=== PATIENT | male | born 1985 | race Caucasian/White ===

== ENCOUNTER 2020-02-15 23:42 | Inpatient (IN) | payer MEDICAID, OTHER ==
[~2020-02-15] VITALS: Ht 175.3 cm; Wt 86.2 kg
--- NOTE | 2020-02-16 00:03 | NUR ---
PT BIB [facility], SHORT OF BREATH AND PLACED ON CR MONITOR, AND IV SITES X2 FLUSHED AND FLUSH WELL. PT ON O2 NC 2LPM, DIFFICULTY BREATHING, SITTING UP IN BED, AND MD CALLED TO ROOM.
--- NOTE | 2020-02-16 00:04 | NUR ---
PT TACHYCARDIC, TO EVAL.
--- NOTE | 2020-02-16 00:10 | NUR ---
Pt has second IV to right forearm. 20g. flushed easy with ns 5 ml.
[2020-02-16] MEDS ORDERED: ACETAMINOPHEN 325 MG TABLET ONE ×2 (00:29→18:18)
[2020-02-16] MEDS ORDERED: VANCOMYCIN PER PHARMACY MC PRN ×2 (00:30→02:00)
[2020-02-16] MEDS ORDERED: ACETAMINOPHEN 500 MG TABLET PO ONE (00:30)
[2020-02-16] MEDS ORDERED: PLEASE ENTER ALLERGIES MC SCH (00:30)
--- NOTE | 2020-02-16 00:40 | NUR ---
pt to ct on cr monitor with tech
--- NOTE | 2020-02-16 00:58 | NUR ---
pt back from ct, remains on cr monitor.
[2020-02-16] MEDS ORDERED: VANCOMYCIN 2,000 MG in SODIUM CHLORIDE 0.9% 500 ML IV ONE (01:00)
[2020-02-16] MEDS ORDERED: PHARMACOKINETIC CONSULTATION MC ONE (01:30)
[2020-02-16] MEDS ORDERED: DOCUSATE 100 MG CAPSULE PO PRN (02:00)
[2020-02-16] MEDS ORDERED: ONDANSETRON ODT 4 MG PO PRN (02:00)
[2020-02-16] MEDS ORDERED: PROMETHAZINE 25 MG/ML, 1ML IM PRN (02:00)
[2020-02-16] MEDS ORDERED: POLYETHYLENE GLYCOL 17 GM PACKET PO PRN (02:00)
[2020-02-16] MEDS ORDERED: hydrALAzine 20 MG/ML, 1ML IVPush PRN (02:00)
[2020-02-16] MEDS ORDERED: ENOXAPARIN 40 MG/0.4 ML SQ SCH (02:00)
[2020-02-16] MEDS ORDERED: BISACODYL 10 MG SUPP PR PRN (02:00)
--- NOTE | 2020-02-16 02:28 | NUR ---
BREAK RN ---PT RESTING IN BED ON MONITOR, PT VSS.
[2020-02-16] MEDS ORDERED: PHARMACOKINETIC MONITORING MC PRN (02:30)
[2020-02-16] MEDS: ERTAPENEM 1 GM in SODIUM CHLORIDE 0.9% 50 ML IV SCH ×2 (02:30→05:53)
--- NOTE | 2020-02-16 02:51 | NUR ---
pt calm and resting easy, on cr monitor. taking ice chips. iv intact, meds infusing. no swelling or redness.
[2020-02-16] MEDS ORDERED: OMNIPAQUE 350 MG/ML, 75ML BOTTLE ONE (03:14)
--- NOTE | 2020-02-16 03:19 | NUR ---
ice chips given to pt. pt seems more alert and calm. temperature subsiding. now 98.7F resting in bed on cr monitor.
[2020-02-16] MEDS: SODIUM CHLORIDE 0.9% 1,000 ML IV SCH ×2 (03:50→10:00)
[2020-02-16] MEDS ORDERED: MORPHINE SULFATE 4 MG/ML, 1ML ONE ×3 (03:57→13:58)
[2020-02-16] MEDS: morphine SULFATE 10 MG/ML, 1ML IVPush PRN ×3 (04:05→14:06)
--- NOTE | 2020-02-16 04:11 | NUR ---
pt c/o pain to back radiating to abd and chest on movement, and pain meds given, and charted on pain scale. pt onto bedpan, large liquid stool, brown and liquid. linen changed, and pt cleaned up. no skin breakdown or redness noted to buttocks. pt now comfortable, remains on cr monitor. and ivfm started at 125ml/hr NS per emar. ice chips to pt. a&ox4.
--- NOTE | 2020-02-16 04:50 | NUR ---
pt comfortable, lying on side, and resting. easy respirations and oxygenation. remains on cr monitor.
[2020-02-16 05:16] LABS: HCT (SEDRATE) 37.4 % (39.2-51.8)
[2020-02-16 05:17] LABS: MEAN CORPUSCULAR HEMOGLOBIN 28.5 pg (27.5-34.5); MEAN CORPUSCULAR HGB CONC 33.6 g/dL (33.2-36.2); MEAN PLATELET VOLUME 10.7 fL (7.4-10.4); RED BLOOD COUNT 4.45 x10^6/uL (4.38-5.82); RED CELL DISTRIBUTION WIDTH 14.9 % (9.4-14.8)
--- NOTE | 2020-02-16 05:31 | NUR ---
pt resting comfortably on side. no distress noted at this time. remains on cr monitor.
[2020-02-16 05:34] LABS: TROPONIN I < 0.015 ng/mL (0.000-0.045)
[2020-02-16 05:35] LABS: CHLORIDE 106 mmol/L (98-107)
[2020-02-16 05:45] LABS: ALANINE AMINOTRANSFERASE 52 U/L (12-78); ALBUMIN 1.3 g/dL (3.4-5.0); ALKALINE PHOSPHATASE 273 U/L (45-117); ANION GAP 14 mmol/L (5-15); BILIRUBIN,TOTAL 2.7 mg/dL (0.2-1.0); CALCIUM 7.1 mg/dL (8.5-10.1); CREATININE 1.94 mg/dL (0.7-1.3); TOTAL PROTEIN 5.6 g/dL (6.4-8.2); TROPONIN I < 0.015 ng/mL (0.000-0.045)
[2020-02-16 05:51] LABS: C-REACTIVE PROTEIN, QUANT > 19.00 mg/dL (0.02-0.49)
[2020-02-16] MEDS: ONDANSETRON 2MG/ML, 2ML IVPush PRN ×3 (05:54→22:42)
--- NOTE | 2020-02-16 05:54 | NUR ---
pt c/o nausea, zofran given per emar/MD order. meds infusing. iv site soft and flat, no redness or infiltration noted.
[2020-02-16] MEDS ORDERED: ONDANSETRON 2MG/ML, 2ML ONE ×2 (05:55→09:21)
[2020-02-16 05:57] LABS: MD YES; PLATELET COUNT 13 x10^3/uL (130-400)
[2020-02-16 05:59] LABS: BAND#(MANUAL) 1.28 x10^3/uL; BANDS%(MANUAL) 4 % (0-7); LYMPH#(MANUAL) 0.32 x10^3/uL (1-3.4); LYMPHS% (MANUAL) 1 % (22-44); METAMYELOCYTES# (MANUAL) 0.32 x10^3/uL (0-0); METAMYELOCYTES% (MANUAL) 1 % (0-1); MONOS#(MANUAL) 2.24 x10^3/uL (0.3-2.7); MONOS% (MANUAL) 7 % (2-9); SEG#(MANUAL) 27.84 x10^3/uL (1.8-6.8); SEGS% (MANUAL) 87 % (42-75)
[2020-02-16 06:00] LABS: <PLATELET ESTIMATE> DECREASED; <PLT MORPHOLOGY> NORMAL PLT MORPH; ANISOCYTOSIS 1+; PMNS WITH VACUOLES 1+; TOXIC GRAN 1+
[2020-02-16] MEDS ORDERED: POTASSIUM CHLORIDE 20 MEQ TAB.ER.PRT PO ONE (07:00)
--- NOTE | 2020-02-16 07:04 | NUR ---
REPORT AND CARE TO DAYSHIFT RN without incident. pt resting comfortably. on cr monitor.
--- NOTE | 2020-02-16 07:10 | NUR ---
[facility] of pt. report diana Calvert RN. pt transfer here for evaluation of SOB and sepsis. pt has hx of IV drug abuse and SOB with CP. per report, pt was swabbed for COVID at previous facility and was negative. pt is currentely resting on gurney in position of comfort. no family at bedside pt to be admtted to CCU. pt is currently a hold. admit orders have been recived, awaiting bed assignment
[2020-02-16 08:16] LABS: PLATELET (DIC) 14 x10^3/uL (130-400)
[2020-02-16 08:17] LABS: D-DIMER (DIC) > 35.20 ug/mlFEU (0.00-0.52)
[2020-02-16 08:18] LABS: FIBRINOGEN 489 mg/dL (200-340); PTT 33 Seconds (25-31)
--- NOTE | 2020-02-16 08:30 | NUR ---
pt moved to hospital bed for comfort. positioning for comfort. \ hospitalist has been to bedside for eval pt has been taking PO wate and ice chips pt updated on POC
[2020-02-16] MEDS: PIPERACILLIN/TAZO/PMX 2.25GM 50 ML IVPB SCH ×2 (08:52→13:20)
[2020-02-16] MEDS ORDERED: ACETAMINOPHEN 500 MG TABLET ONE (09:22)
--- NOTE | 2020-02-16 09:45 | NUR ---
pt has been medicated for pain. resting in position of comfort watching TV
--- NOTE | 2020-02-16 10:15 | NUR ---
pt reports that he has had some relief of pain after meds. pt reports that his pain was 8-10 out of 10 beforemeds and that now he is down to a 6/10. pt has been taking PO fluids and ice chips without difficulty. no apaprent distress
--- NOTE | 2020-02-16 11:54 | NUR ---
spoke to pt SO Beryl [phone], given upate on pt status per pt OK verified pt mother phone number as [phone]. have attempted to call 3x, but have been unable to reach her pt ate about 50% of his meal. requesting more soda and PO ice chips
[2020-02-16 12:28] LABS: CREATININE 1.74 mg/dL (0.7-1.3)
--- NOTE | 2020-02-16 12:33 | NUR ---
pt has been dozing intermittently. resting in position of comfort
--- NOTE | 2020-02-16 13:15 | NUR ---
sequentials in place. pt has been given incentive spirometer with instructions for use and has provided return demonstrations. pt positioning for comfort pt updated on POC. pt has been taking PO fluids without diffiulty. no new c/o awaiting bed assignment
--- NOTE | 2020-02-16 14:03 | NUR ---
Echo at bedside
--- NOTE | 2020-02-16 14:06 | NUR ---
message left for Dr. Figueroa to discuss pt VS and urine output
[2020-02-16 14:46] LABS: MICROSCOPIC INDICATED
--- NOTE | 2020-02-16 14:57 | NUR ---
spoke to Dr. Islas regarding pt Echo completion and urine output. pt to have new COVID swab and LR infusion
[2020-02-16 15:19] LABS: BASOPHILS % (AUTO) 0 % (0-1); EOSINOPHILS % (AUTO) 2 % (1-7); LYMPHOCYTES % (AUTO) 4 % (22-44); MEAN CORPUSCULAR HEMOGLOBIN 28.5 pg (27.5-34.5); MEAN CORPUSCULAR HGB CONC 33.5 g/dL (33.2-36.2); MEAN PLATELET VOLUME 10.1 fL (7.4-10.4); MONOCYTES % (AUTO) 10 % (2-9); NEUTROPHILS % (AUTO) 83 % (42-75); RED BLOOD COUNT 4.02 x10^6/uL (4.38-5.82); RED CELL DISTRIBUTION WIDTH 15.4 % (9.4-14.8)
[2020-02-16] MEDS: VANCOMYCIN 2,000 MG in SODIUM CHLORIDE 0.9% 500 ML IV SCH (15:40)
--- NOTE | 2020-02-16 15:42 | NUR ---
TASK RN NOTE PT MEDICATED PER EMAR. PT REMINDED TO KEEP NC IN NOSE FOR O2 ADMINISTRATION. PT RECLINED IN BED WATCHING TELEVISION. PRIMARY RN AWARE OF VS.
[2020-02-16 15:54] LABS: PLATELET COUNT 11 x10^3/uL (130-400)
[2020-02-16] MEDS: INSULIN LISPRO 100 UNITS/ML, PEN SQ-INSULIN SCH ×2 (16:00→21:00)
[2020-02-16 16:10] LABS: MD SCAN
--- NOTE | 2020-02-16 16:30 | NUR ---
lab at bedside to draw
--- NOTE | 2020-02-16 16:44 | NUR ---
pt watching TV with ABX infusing lab has contacted this RN to discuss possible irradiated plateklet infusion, but is going to F/U with ordering MD first report to Cynthia REZA for lunch
--- NOTE | 2020-02-16 16:52 | NUR ---
BREAK RN: REBA RPT REC'D ASSUMED PT CARE. PT VSS, C/O PAIN; 10/24. eMAR REVIEWED, ORDERS FOR OXYCODONE DISCUSSED WITH PT. COVID SWAB OBTAINED AND DELIVERED TO LAB. CALL LIGHT W/I REACH.
[2020-02-16] MEDS ORDERED: OXYcodone IR 5MG TABLET ONE (16:55)
[2020-02-16] MEDS: OXYcodone IR 5MG TABLET PO PRN ×2 (17:02→22:42)
--- NOTE | 2020-02-16 17:04 | NUR ---
BREAK RN: PT MED NOTED FOR PAIN
--- NOTE | 2020-02-16 17:07 | NUR ---
BREAK RN: SPOKE WITH ANDRAE IN BLOOD BANK. SHE STATED THAT SHE SPOKE WITH DR MISHRA AND PT IS CLEARED TO RECIEVE NON-IRRADIATED PLTS PT DOES NOT HAVE A CURRENT CANCER DIAGNOSIS. PER ANDRAE PLATELETS ARE READY AND CAN BE DELIVERED ONCE PURPLE SLIP IS RECIEVED BY BLOOD BANK
[2020-02-16] MEDS: LACTATED RINGERS 1,000 ML IV SCH ×2 (17:16→22:41)
[2020-02-16] MEDS ORDERED: PIPERACILLIN/TAZO/PMX 3.375GM 50 ML IV SCH (18:00)
--- NOTE | 2020-02-16 18:00 | NUR ---
pt resting. pt is diaphoretic, but dozing intermittently. pt has been intermittently diaphoretic all throughout the day. pt is currently sleeping, but easily arousable. blood product consent has been obtained by Cynthia REZA
[2020-02-16] MEDS: ACETAMINOPHEN 325 MG TABLET PO PRN (18:21)
[2020-02-16] MEDS: PIPERACILLIN/TAZO/PMX 4.5GM 100 ML IV SCH ×2 (18:22→23:56)
--- NOTE | 2020-02-16 18:31 | NUR ---
puprple slip for platelet request has been sent to blood bank
[2020-02-16 18:43] VITALS: BP 123/58
--- NOTE | 2020-02-16 18:45 | NUR ---
platelet transfusion initiated. checked with Cynthia RN and pt at bedside
[2020-02-16 18:58] VITALS: BP 105/50
--- NOTE | 2020-02-16 18:58 | NUR ---
first VS check into transfusion, pt has slight elevation in temp and change in B/P, infusion held at this time. pt has no increased resp. distress. pt has no change in HR. no flushing, no rash, no ral swelling. blood bank contacted
--- NOTE | 2020-02-16 18:58 | NUR ---
REPORT OF PT FROM LIBIA DIOP AND ASSUMING CARE OF PT AT THIS TIME.
--- NOTE | 2020-02-16 19:20 | NUR ---
per Blood Bank, transfusion not to be continued. pt liriano needs to be drained, flush IV line and next urine needs to be sent for eval. pt updated on POC
--- NOTE | 2020-02-16 19:38 | NUR ---
PT BROUGHT WATER PER PT REQUEST. LIBIA DIOP ATTEMPTED TO CALL REPORT TO CCU, BUT RN UNAVAILABLE AT THIS TIME. LAB AT FOR BLOOD DRAW.
--- NOTE | 2020-02-16 19:45 | NUR ---
have discussed pt condition with Dr. Munoz. per Dr. Munoz, no change in current course of tx. orders recieved for MRI and cooling blanket. no change in pain management at this time
--- NOTE | 2020-02-16 19:52 | NUR ---
bed assignment has been recieved, attempting to call report
--- NOTE | 2020-02-16 19:53 | NUR ---
recieving RN not ready to take report at this time
--- NOTE | 2020-02-16 20:01 | NUR ---
report to Familia REZA
--- NOTE | 2020-02-16 20:23 | NUR ---
CCU CALLED TO TUBE COOLING BLANKET AT THIS TIME. PT FEBRILE. HOSPITALIST AWARE WITH ORDERS IN PLACE.
[2020-02-16 21:59] VITALS: BP 116/68
--- NOTE | 2020-02-16 22:05 | NUR ---
REPORT OF PT TO LIBIA ZARATE. ALL QUESTIONS ANSWERED. SOY PAGED TO FRONT FOR ASSISTANCE OF TRANSPORT OF PT FROM ED TO CCU. PT LEAVING FLOOR AT THIS TIME WITH THIS RN AND ASHLEY OLIVIER. PT EDUCATED ON ROOM ASSIGNMENT AND VERBALIZES UNDERSTANDING. PT DENIES ANY NEEDS PRIOR TO TRANSPORT TO FLOOR.
[2020-02-16 22:31] LABS: MICROSCOPIC INDICATED
[2020-02-17 02:43] VITALS: BP 116/68
[2020-02-17 05:33] LABS: CHLORIDE 105 mmol/L (98-107)
[2020-02-17 05:43] LABS: ANION GAP 8 mmol/L (5-15); CALCIUM 7.2 mg/dL (8.5-10.1); CREATININE 1.34 mg/dL (0.7-1.3)
[2020-02-17] MEDS: PIPERACILLIN/TAZO/PMX 4.5GM 100 ML IV SCH ×2 (06:10→12:40)
[2020-02-17] MEDS: OXYcodone IR 5MG TABLET PO PRN ×5 (06:16→22:25)
[2020-02-17 06:49] LABS: BASOPHILS % (AUTO) 0 % (0-1); EOSINOPHILS % (AUTO) 0 % (1-7); LYMPHOCYTES % (AUTO) 46 % (22-44); MEAN CORPUSCULAR HEMOGLOBIN 28.4 pg (27.5-34.5); MEAN CORPUSCULAR HGB CONC 33.2 g/dL (33.2-36.2); MEAN PLATELET VOLUME 10.6 fL (7.4-10.4); MONOCYTES % (AUTO) 2 % (2-9); NEUTROPHILS % (AUTO) 51 % (42-75); RED BLOOD COUNT 3.79 x10^6/uL (4.38-5.82); RED CELL DISTRIBUTION WIDTH 15.4 % (9.4-14.8)
[2020-02-17] MEDS: VANCOMYCIN 2,000 MG in SODIUM CHLORIDE 0.9% 500 ML IV SCH (07:29)
[2020-02-17] MEDS: INSULIN LISPRO 100 UNITS/ML, PEN SQ-INSULIN SCH ×4 (07:32→21:00)
[2020-02-17 08:32] LABS: MD SCAN; PLATELET COUNT 24 x10^3/uL (130-400)
[2020-02-17] MEDS: LACTATED RINGERS 1,000 ML IV SCH (09:36)
[2020-02-17] MEDS ORDERED: POTASSIUM CHLORIDE 20 MEQ TAB.ER.PRT PO ONE (11:30)
[2020-02-17] MEDS: ACETAMINOPHEN 325 MG TABLET PO PRN ×3 (12:02→22:25)
[2020-02-17] MEDS: CEFTAROLINE 600 MG in SODIUM CHLORIDE 0.9% 100 ML IV SCH ×2 (13:49→21:17)
[2020-02-17] MEDS ORDERED: VANCOMYCIN 2,000 MG in SODIUM CHLORIDE 0.9% 500 ML IV SCH (18:00)
[2020-02-18] MEDS: ACETAMINOPHEN 325 MG TABLET PO PRN ×5 (02:42→21:55)
[2020-02-18] MEDS: OXYcodone IR 5MG TABLET PO PRN ×4 (02:43→15:40)
[2020-02-18] MEDS: CEFTAROLINE 600 MG in SODIUM CHLORIDE 0.9% 100 ML IV SCH ×3 (05:29→21:55)
[2020-02-18 05:37] LABS: CALCIUM 7.2 mg/dL (8.5-10.1); CHLORIDE 105 mmol/L (98-107); MEAN CORPUSCULAR HEMOGLOBIN 28.3 pg (27.5-34.5); MEAN CORPUSCULAR HGB CONC 33.6 g/dL (33.2-36.2); RED CELL DISTRIBUTION WIDTH 15.3 % (9.4-14.8)
[2020-02-18 05:41] LABS: ANION GAP 7 mmol/L (5-15); CREATININE 0.82 mg/dL (0.7-1.3)
[2020-02-18 06:56] LABS: PLATELET COUNT 21 x10^3/uL (130-400)
[2020-02-18] MEDS ORDERED: POTASSIUM CHLORIDE 20 MEQ TAB.ER.PRT PO ONE (07:00)
[2020-02-18 07:08] LABS: MD YES
[2020-02-18 07:09] LABS: LYMPH#(MANUAL) 0.31 x10^3/uL (1-3.4); LYMPHS% (MANUAL) 1 % (22-44); MONOS#(MANUAL) 0.93 x10^3/uL (0.3-2.7); MONOS% (MANUAL) 3 % (2-9); SEG#(MANUAL) 29.76 x10^3/uL (1.8-6.8); SEGS% (MANUAL) 96 % (42-75)
[2020-02-18 07:13] LABS: ANISOCYTOSIS 1+
[2020-02-18 07:14] LABS: <PLATELET ESTIMATE> DECREASED; <PLT MORPHOLOGY> NORMAL PLT MORPH; PMNS WITH VACUOLES 1+; TOXIC GRAN 1+
[2020-02-18] MEDS ORDERED: MORPHINE SULFATE 4 MG/ML, 1ML ONE (08:00)
[2020-02-18] MEDS: morphine SULFATE 10 MG/ML, 1ML IVPush PRN ×2 (08:08→10:40)
[2020-02-18] MEDS: INSULIN LISPRO 100 UNITS/ML, PEN SQ-INSULIN SCH ×4 (08:10→21:53)
[2020-02-18 08:28] LABS: D-DIMER (DIC) 33.12 ug/mlFEU (0.00-0.52); PROTIME 11.8 Seconds (9.6-11.5)
[2020-02-18] MEDS: RIFAMPIN 300 MG CAPSULE PO SCH (09:41)
[2020-02-18 10:08] LABS: AMPHETAMINE SCREEN, URINE Negative (Negative); BARBITURATE SCREEN, URINE Negative (Negative); BENZODIAZEPINE SCREEN, URINE Negative (Negative); CANNABINOID SCREEN, URINE Negative (Negative); COCAINE SCREEN, URINE Negative (Negative); METHADONE SCREEN, URINE Negative (Negative); OPIATE SCREEN, URINE Positive (Negative)
[2020-02-18] MEDS: DAPTOMYCIN 800 MG in SODIUM CHLORIDE 0.9% 100 ML IVPB SCH (12:40)
[2020-02-18] MEDS: MIDODRINE 5 MG TABLET PO SCH ×2 (15:30→21:55)
[2020-02-19] MEDS: ACETAMINOPHEN 325 MG TABLET PO PRN ×4 (01:50→22:03)
[2020-02-19 05:15] LABS: MEAN CORPUSCULAR HEMOGLOBIN 28.8 pg (27.5-34.5); MEAN PLATELET VOLUME 11.3 fL (7.4-10.4); RED BLOOD COUNT 3.36 x10^6/uL (4.38-5.82); RED CELL DISTRIBUTION WIDTH 15.4 % (9.4-14.8)
[2020-02-19] MEDS: CEFTAROLINE 600 MG in SODIUM CHLORIDE 0.9% 100 ML IV SCH ×3 (05:24→22:02)
[2020-02-19 05:36] LABS: PLATELET COUNT 27 x10^3/uL (130-400)
[2020-02-19 06:29] LABS: MD YES
[2020-02-19 06:46] LABS: BAND#(MANUAL) 1.14 x10^3/uL; BANDS%(MANUAL) 4 % (0-7); EOS#(MANUAL) 0.29 x10^3/uL (0.0-0.4); EOS% (MANUAL) 1 % (1-7); LYMPH#(MANUAL) 3.42 x10^3/uL (1-3.4); LYMPHS% (MANUAL) 12 % (22-44); MONOS#(MANUAL) 0.86 x10^3/uL (0.3-2.7); MONOS% (MANUAL) 3 % (2-9); SEGS% (MANUAL) 80 % (42-75)
[2020-02-19 06:47] LABS: ANISOCYTOSIS 1+; SMUDGE CELLS 1+; TOXIC GRAN 1+
[2020-02-19 06:48] LABS: <PLATELET ESTIMATE> DECREASED; LARGE PLATELETS 1+
[2020-02-19 07:49] LABS: D-DIMER (DIC) 23.53 ug/mlFEU (0.00-0.52); PROTIME 11.3 Seconds (9.6-11.5)
[2020-02-19] MEDS: INSULIN LISPRO 100 UNITS/ML, PEN SQ-INSULIN SCH ×2 (08:08→11:31)
[2020-02-19] MEDS: MIDODRINE 5 MG TABLET PO SCH ×3 (08:19→20:17)
[2020-02-19] MEDS: RIFAMPIN 300 MG CAPSULE PO SCH (08:19)
[2020-02-19] MEDS: OXYcodone IR 5MG TABLET PO PRN ×4 (08:23→20:19)
[2020-02-19] MEDS ORDERED: GENTAMICIN PER PHARMACY MC PRN (09:30)
[2020-02-19] MEDS: DAPTOMYCIN 800 MG in SODIUM CHLORIDE 0.9% 100 ML IVPB SCH (09:32)
[2020-02-19] MEDS ORDERED: PHARMACOKINETIC MONITORING MC PRN (11:00)
[2020-02-19] MEDS: GENTAMICIN 300 MG in SODIUM CHLORIDE 0.9% 100 ML IV SCH (11:32)
[2020-02-20] MEDS: ACETAMINOPHEN 325 MG TABLET PO PRN ×4 (04:34→20:04)
[2020-02-20] MEDS: CEFTAROLINE 600 MG in SODIUM CHLORIDE 0.9% 100 ML IV SCH ×3 (05:20→21:33)
[2020-02-20 05:34] LABS: ANION GAP 7 mmol/L (5-15); CALCIUM 7.3 mg/dL (8.5-10.1); CHLORIDE 108 mmol/L (98-107); CREATININE 1.08 mg/dL (0.7-1.3)
[2020-02-20 05:35] LABS: MEAN CORPUSCULAR HEMOGLOBIN 28.1 pg (27.5-34.5); MEAN CORPUSCULAR HGB CONC 33.4 g/dL (33.2-36.2); MEAN PLATELET VOLUME 10.3 fL (7.4-10.4); RED BLOOD COUNT 3.44 x10^6/uL (4.38-5.82); RED CELL DISTRIBUTION WIDTH 15.1 % (9.4-14.8)
[2020-02-20 06:39] LABS: MD YES
[2020-02-20 06:40] LABS: PLATELET COUNT 38 x10^3/uL (130-400)
[2020-02-20 06:44] LABS: LYMPH#(MANUAL) 2.64 x10^3/uL (1-3.4); LYMPHS% (MANUAL) 8 % (22-44)
[2020-02-20 06:46] LABS: BAND#(MANUAL) 0.99 x10^3/uL; BANDS%(MANUAL) 3 % (0-7); EOS#(MANUAL) 0.33 x10^3/uL (0.0-0.4); EOS% (MANUAL) 1 % (1-7); MONOS#(MANUAL) 1.98 x10^3/uL (0.3-2.7); MONOS% (MANUAL) 6 % (2-9); REACTIVE LYMPHS # (MANUAL) 0.33 x10^3/uL (0-0); REACTIVE LYMPHS % (MANUAL) 1 % (0-0); SEG#(MANUAL) 26.73 x10^3/uL (1.8-6.8); SEGS% (MANUAL) 81 % (42-75); SMUDGE CELLS 1+; TOXIC GRAN 1+
[2020-02-20 06:47] LABS: ANISOCYTOSIS 1+; POLYCHROMASIA 1+; TARGET CELLS 1+
[2020-02-20 06:48] LABS: <PLATELET ESTIMATE> DECREASED; LARGE PLATELETS 1+
[2020-02-20] MEDS: OXYcodone IR 5MG TABLET PO PRN (08:49)
[2020-02-20] MEDS: RIFAMPIN 300 MG CAPSULE PO SCH (08:49)
[2020-02-20] MEDS: MIDODRINE 5 MG TABLET PO SCH ×3 (08:49→20:05)
[2020-02-20] MEDS: DAPTOMYCIN 800 MG in SODIUM CHLORIDE 0.9% 100 ML IVPB SCH (08:50)
[2020-02-20] MEDS: GENTAMICIN 300 MG in SODIUM CHLORIDE 0.9% 100 ML IV SCH (11:58)
[2020-02-21] MEDS: ACETAMINOPHEN 325 MG TABLET PO PRN ×5 (00:22→23:14)
[2020-02-21 04:56] LABS: MEAN CORPUSCULAR HEMOGLOBIN 28.5 pg (27.5-34.5); MEAN CORPUSCULAR HGB CONC 33.6 g/dL (33.2-36.2); MEAN PLATELET VOLUME 10.3 fL (7.4-10.4); PLATELET COUNT 65 x10^3/uL (130-400); RED BLOOD COUNT 3.07 x10^6/uL (4.38-5.82); RED CELL DISTRIBUTION WIDTH 15.1 % (9.4-14.8)
[2020-02-21 05:10] LABS: CALCIUM 7.3 mg/dL (8.5-10.1); CHLORIDE 109 mmol/L (98-107)
[2020-02-21 05:18] LABS: ALANINE AMINOTRANSFERASE 48 U/L (12-78); ALBUMIN 1.1 g/dL (3.4-5.0); ALKALINE PHOSPHATASE 192 U/L (45-117); ANION GAP 8 mmol/L (5-15); BILIRUBIN,TOTAL 1.7 mg/dL (0.2-1.0); CREATININE 1.21 mg/dL (0.7-1.3); TOTAL PROTEIN 5.7 g/dL (6.4-8.2)
[2020-02-21 05:50] LABS: MD YES
[2020-02-21 05:52] LABS: <PLATELET ESTIMATE> DECREASED; ANISOCYTOSIS 1+; BAND#(MANUAL) 0.92 x10^3/uL; BANDS%(MANUAL) 3 % (0-7); LARGE PLATELETS 1+; LYMPH#(MANUAL) 1.53 x10^3/uL (1-3.4); LYMPHS% (MANUAL) 5 % (22-44); MONOS#(MANUAL) 0.61 x10^3/uL (0.3-2.7); MONOS% (MANUAL) 2 % (2-9); POLYCHROMASIA 1+; SEG#(MANUAL) 27.54 x10^3/uL (1.8-6.8); SEGS% (MANUAL) 90 % (42-75)
[2020-02-21] MEDS: CEFTAROLINE 600 MG in SODIUM CHLORIDE 0.9% 100 ML IV SCH ×3 (06:39→20:58)
[2020-02-21] MEDS ORDERED: SODIUM CHLORIDE 0.9%, 500ML IVBOLUS ONE (08:30)
[2020-02-21] MEDS ORDERED: VASOPRESSIN 20 UNIT in SODIUM CHLORIDE 0.9% 99 ML IV PRN (08:30)
[2020-02-21] MEDS: DAPTOMYCIN 800 MG in SODIUM CHLORIDE 0.9% 100 ML IVPB SCH (08:33)
[2020-02-21] MEDS: RIFAMPIN 300 MG CAPSULE PO SCH (08:36)
[2020-02-21] MEDS: MIDODRINE 5 MG TABLET PO SCH ×3 (08:44→20:54)
[2020-02-21] MEDS: OXYcodone IR 5MG TABLET PO PRN ×3 (11:02→23:14)
[2020-02-21] MEDS ORDERED: ALBUMIN HUMAN 25% 100 ML IV ONE ×2 (11:30→12:30)
[2020-02-22] MEDS: ACETAMINOPHEN 325 MG TABLET PO PRN ×3 (04:42→20:56)
[2020-02-22] MEDS: CEFTAROLINE 600 MG in SODIUM CHLORIDE 0.9% 100 ML IV SCH ×3 (05:27→21:30)
[2020-02-22 05:37] LABS: MEAN CORPUSCULAR HEMOGLOBIN 28.6 pg (27.5-34.5); MEAN CORPUSCULAR HGB CONC 33.8 g/dL (33.2-36.2); MEAN PLATELET VOLUME 9.4 fL (7.4-10.4); PLATELET COUNT 94 x10^3/uL (130-400); RED BLOOD COUNT 2.44 x10^6/uL (4.38-5.82); RED CELL DISTRIBUTION WIDTH 15.2 % (9.4-14.8)
[2020-02-22 05:41] LABS: CHLORIDE 109 mmol/L (98-107)
[2020-02-22 05:47] LABS: ANION GAP 7 mmol/L (5-15); BILIRUBIN,TOTAL 1.3 mg/dL (0.2-1.0); CALCIUM 7.4 mg/dL (8.5-10.1); CREATININE 1.06 mg/dL (0.7-1.3)
[2020-02-22 05:58] LABS: MD YES
[2020-02-22 06:00] LABS: BAND#(MANUAL) 0.62 x10^3/uL; BANDS%(MANUAL) 2 % (0-7); EOS#(MANUAL) 0.62 x10^3/uL (0.0-0.4); EOS% (MANUAL) 2 % (1-7); LYMPH#(MANUAL) 2.16 x10^3/uL (1-3.4); LYMPHS% (MANUAL) 7 % (22-44); MONOS#(MANUAL) 1.54 x10^3/uL (0.3-2.7); MONOS% (MANUAL) 5 % (2-9); SEG#(MANUAL) 25.87 x10^3/uL (1.8-6.8); SEGS% (MANUAL) 84 % (42-75)
[2020-02-22 06:01] LABS: ANISOCYTOSIS 1+; POLYCHROMASIA 1+
[2020-02-22 06:02] LABS: <PLATELET ESTIMATE> DECREASED; <PLT MORPHOLOGY> NORMAL PLT MORPH; SMUDGE CELLS 1+; TOXIC GRAN 1+
[2020-02-22] MEDS: DAPTOMYCIN 800 MG in SODIUM CHLORIDE 0.9% 100 ML IVPB SCH (08:13)
[2020-02-22] MEDS: MIDODRINE 5 MG TABLET PO SCH ×3 (08:14→19:47)
[2020-02-22] MEDS: RIFAMPIN 300 MG CAPSULE PO SCH (08:14)
[2020-02-22] MEDS ORDERED: PANTOPRAZOLE 40 MG IV IVPush SCH (09:00)
[2020-02-22] MEDS: OXYcodone IR 5MG TABLET PO PRN ×2 (11:43→19:47)
[2020-02-22 12:52] LABS: BASOPHILS % (AUTO) 0 % (0-1); EOSINOPHILS % (AUTO) 0 % (1-7); LYMPHOCYTES % (AUTO) 5 % (22-44); MEAN CORPUSCULAR HEMOGLOBIN 28.4 pg (27.5-34.5); MEAN CORPUSCULAR HGB CONC 33.4 g/dL (33.2-36.2); MEAN PLATELET VOLUME 9.2 fL (7.4-10.4); MONOCYTES % (AUTO) 6 % (2-9); NEUTROPHILS % (AUTO) 88 % (42-75); PLATELET COUNT 104 x10^3/uL (130-400); RED BLOOD COUNT 2.35 x10^6/uL (4.38-5.82); RED CELL DISTRIBUTION WIDTH 15.5 % (9.4-14.8)
[2020-02-22 13:03] LABS: MD NO
[2020-02-22 13:08] LABS: D-DIMER (DIC) 9.02 ug/mlFEU (0.00-0.52); PROTIME 11.3 Seconds (9.6-11.5)
[2020-02-22 16:10] VITALS: BP 106/49
[2020-02-22] MEDS: PANTOPRAZOLE 40MG TABLET PO SCH (17:38)
[2020-02-22] MEDS: morphine SULFATE 10 MG/ML, 1ML IVPush PRN (22:42)
[2020-02-23 01:56] VITALS: BP 114/43
[2020-02-23 02:13] VITALS: BP 103/49
[2020-02-23 02:30] VITALS: BP 103/49
[2020-02-23 03:00] VITALS: BP 111/49
[2020-02-23 04:00] VITALS: BP 122/34
[2020-02-23] MEDS: OXYcodone IR 5MG TABLET PO PRN ×4 (04:30→22:35)
[2020-02-23] MEDS: PANTOPRAZOLE 40MG TABLET PO SCH ×2 (05:44→20:15)
[2020-02-23] MEDS: CEFTAROLINE 600 MG in SODIUM CHLORIDE 0.9% 100 ML IV SCH ×3 (05:44→20:16)
[2020-02-23 06:01] LABS: MEAN CORPUSCULAR HEMOGLOBIN 29.3 pg (27.5-34.5); MEAN CORPUSCULAR HGB CONC 33.8 g/dL (33.2-36.2); MEAN PLATELET VOLUME 9.2 fL (7.4-10.4); PLATELET COUNT 97 x10^3/uL (130-400); RED BLOOD COUNT 2.59 x10^6/uL (4.38-5.82)
[2020-02-23 06:14] LABS: ALBUMIN 1.2 g/dL (3.4-5.0); ANION GAP 5 mmol/L (5-15); CALCIUM 7.6 mg/dL (8.5-10.1); CHLORIDE 107 mmol/L (98-107)
[2020-02-23 06:18] LABS: ALANINE AMINOTRANSFERASE 25 U/L (12-78); ALKALINE PHOSPHATASE 162 U/L (45-117); BILIRUBIN,TOTAL 1.4 mg/dL (0.2-1.0); CREATININE 1.01 mg/dL (0.7-1.3)
[2020-02-23 06:31] LABS: MD YES
[2020-02-23 06:32] LABS: BAND#(MANUAL) 0.29 x10^3/uL; BANDS%(MANUAL) 1 % (0-7)
[2020-02-23 06:33] LABS: LYMPH#(MANUAL) 1.16 x10^3/uL (1-3.4); LYMPHS% (MANUAL) 4 % (22-44); MONOS#(MANUAL) 0.87 x10^3/uL (0.3-2.7); MONOS% (MANUAL) 3 % (2-9); SEG#(MANUAL) 26.59 x10^3/uL (1.8-6.8); SEGS% (MANUAL) 92 % (42-75); TOXIC GRAN 1+
[2020-02-23 06:34] LABS: ANISOCYTOSIS 1+; POLYCHROMASIA 1+
[2020-02-23 06:35] LABS: <PLATELET ESTIMATE> DECREASED; <PLT MORPHOLOGY> NORMAL PLT MORPH
[2020-02-23] MEDS: ACETAMINOPHEN 325 MG TABLET PO PRN ×3 (07:27→22:34)
[2020-02-23] MEDS: DAPTOMYCIN 800 MG in SODIUM CHLORIDE 0.9% 100 ML IVPB SCH (08:12)
[2020-02-23] MEDS: RIFAMPIN 300 MG CAPSULE PO SCH (08:27)
[2020-02-23] MEDS: MIDODRINE 5 MG TABLET PO SCH ×3 (08:28→20:15)
[2020-02-23] MEDS: morphine SULFATE 10 MG/ML, 1ML IVPush PRN ×2 (09:20→20:17)
[2020-02-24] VITALS (10 sets, daily range): BP systolic 114–142; BP diastolic 54–83
[2020-02-24] MEDS: ACETAMINOPHEN 325 MG TABLET PO PRN ×2 (03:02→15:19)
[2020-02-24] MEDS: OXYcodone IR 5MG TABLET PO PRN ×4 (03:03→20:43)
[2020-02-24] MEDS: PANTOPRAZOLE 40MG TABLET PO SCH ×2 (05:33→17:46)
[2020-02-24] MEDS: morphine SULFATE 10 MG/ML, 1ML IVPush PRN ×4 (05:33→22:57)
[2020-02-24 05:50] LABS: MEAN CORPUSCULAR HEMOGLOBIN 29.1 pg (27.5-34.5); MEAN CORPUSCULAR HGB CONC 33.5 g/dL (33.2-36.2); MEAN PLATELET VOLUME 8.9 fL (7.4-10.4); PLATELET COUNT 121 x10^3/uL (130-400); RED BLOOD COUNT 2.57 x10^6/uL (4.38-5.82); RED CELL DISTRIBUTION WIDTH 16.2 % (9.4-14.8)
[2020-02-24 06:01] LABS: ANION GAP 6 mmol/L (5-15); CALCIUM 7.7 mg/dL (8.5-10.1); CHLORIDE 107 mmol/L (98-107)
[2020-02-24 06:05] LABS: BILIRUBIN,TOTAL 1.2 mg/dL (0.2-1.0); CREATININE 0.84 mg/dL (0.7-1.3)
[2020-02-24] MEDS: CEFTAROLINE 600 MG in SODIUM CHLORIDE 0.9% 100 ML IV SCH ×3 (06:21→21:02)
[2020-02-24 06:27] LABS: MD YES
[2020-02-24 06:28] LABS: ANISOCYTOSIS 1+; BAND#(MANUAL) 0.52 x10^3/uL; BANDS%(MANUAL) 2 % (0-7); EOS#(MANUAL) 0.26 x10^3/uL (0.0-0.4); EOS% (MANUAL) 1 % (1-7); LYMPHS% (MANUAL) 5 % (22-44); MONOS#(MANUAL) 1.81 x10^3/uL (0.3-2.7); MONOS% (MANUAL) 7 % (2-9); POLYCHROMASIA 1+; SCHISTOCYTES 1+; SEG#(MANUAL) 22.02 x10^3/uL (1.8-6.8); SEGS% (MANUAL) 85 % (42-75)
[2020-02-24 06:29] LABS: <PLATELET ESTIMATE> DECREASED; <PLT MORPHOLOGY> NORMAL PLT MORPH; SMUDGE CELLS 1+
[2020-02-24] MEDS: SODIUM CHLORIDE FLUSH 10ML SYR IVF SCH ×2 (09:00→20:50)
[2020-02-24] MEDS: RIFAMPIN 300 MG CAPSULE PO SCH (09:29)
[2020-02-24] MEDS: MIDODRINE 5 MG TABLET PO SCH ×3 (09:30→20:45)
[2020-02-24 10:56] LABS: MEAN CORPUSCULAR HEMOGLOBIN 29.5 pg (27.5-34.5); MEAN CORPUSCULAR HGB CONC 34.1 g/dL (33.2-36.2); MEAN PLATELET VOLUME 8.8 fL (7.4-10.4); PLATELET COUNT 131 x10^3/uL (130-400); RED BLOOD COUNT 2.46 x10^6/uL (4.38-5.82); RED CELL DISTRIBUTION WIDTH 15.8 % (9.4-14.8)
[2020-02-24 11:03] LABS: INTERNATIONAL NORMALIZED RATIO 1.06 (0.93-1.1); PROTHROMBIN TIME 11.2 Seconds (9.6-11.5)
[2020-02-24 11:05] LABS: ALBUMIN 1.2 g/dL (3.4-5.0); ANION GAP 6 mmol/L (5-15); CALCIUM 7.9 mg/dL (8.5-10.1); CHLORIDE 108 mmol/L (98-107)
[2020-02-24 11:11] LABS: ALANINE AMINOTRANSFERASE 25 U/L (12-78); ALKALINE PHOSPHATASE 159 U/L (45-117); CREATININE 0.95 mg/dL (0.7-1.3); TOTAL PROTEIN 6.7 g/dL (6.4-8.2)
[2020-02-24 11:15] LABS: MD YES
[2020-02-24 11:31] LABS: <PLATELET ESTIMATE> DECREASED; <PLT MORPHOLOGY> NORMAL PLT MORPH; ANISOCYTOSIS 1+; LYMPH#(MANUAL) 0.23 x10^3/uL (1-3.4); LYMPHS% (MANUAL) 1 % (22-44); MONOS#(MANUAL) 1.36 x10^3/uL (0.3-2.7); MONOS% (MANUAL) 6 % (2-9); POLYCHROMASIA 1+; SCHISTOCYTES 1+; SEG#(MANUAL) 21.11 x10^3/uL (1.8-6.8); SEGS% (MANUAL) 93 % (42-75); SMUDGE CELLS 1+
[2020-02-24] MEDS: DAPTOMYCIN 800 MG in SODIUM CHLORIDE 0.9% 100 ML IVPB SCH (11:46)
[2020-02-24] MEDS ORDERED: MUPIROCIN OINT 2%, 22GM ONE (22:41)
[2020-02-24] MEDS: MUPIROCIN OINT 2%, 22GM NAS SCH (22:57)
[2020-02-24] MEDS: CHLORHEXIDINE 15 ML UDC MM PRN (22:57)
[2020-02-25] VITALS (11 sets, daily range): BP systolic 74–124; BP diastolic 42–79
[2020-02-25] MEDS: OXYcodone IR 5MG TABLET PO PRN (01:05)
[2020-02-25] MEDS: ACETAMINOPHEN 325 MG TABLET PO PRN (01:05)
[2020-02-25] MEDS ORDERED: INSULIN LISPRO 100 UNITS/ML, PEN SQ-INSULIN SCH (04:00)
[2020-02-25] MEDS: morphine SULFATE 10 MG/ML, 1ML IVPush PRN (04:20)
[2020-02-25] MEDS: MUPIROCIN OINT 2%, 22GM NAS SCH ×2 (04:50→20:09)
[2020-02-25] MEDS: CHLORHEXIDINE 15 ML UDC MM PRN (04:50)
[2020-02-25] MEDS: CEFTAROLINE 600 MG in SODIUM CHLORIDE 0.9% 100 ML IV SCH ×3 (05:58→21:39)
[2020-02-25] MEDS: PANTOPRAZOLE 40MG TABLET PO SCH (05:58)
[2020-02-25] MEDS ORDERED: MIDAZOLAM 10MG/2 ML ONE (06:44)
[2020-02-25] MEDS ORDERED: FENTANYL PF 250 MCG/5ML ONE ×5 (06:44→11:41)
[2020-02-25] MEDS ORDERED: POTASSIUM CHLORIDE 80 MEQ, SODIUM BICARBONATE 8.4% 10 MEQ, MAGNESIUM SULFATE 0.5 GM, LI... IV PRN (07:30)
[2020-02-25] MEDS ORDERED: ALBUMIN HUMAN 5% 500 ML IV PRN (07:30)
[2020-02-25] MEDS ORDERED: REGULAR INSULIN 100 UNITS in SODIUM CHLORIDE 0.9% 99 ML IV PRN ×2 (07:30→12:30)
[2020-02-25] MEDS ORDERED: EPINEPHRINE 5 MG in SODIUM CHLORIDE 0.9% 245 ML IV PRN (07:30)
[2020-02-25] MEDS ORDERED: MANNITOL PMX 20% 500 ML IVPB PRN (07:30)
[2020-02-25] MEDS ORDERED: PHENYLEPHRINE 50 MG in SODIUM CHLORIDE 0.9% 245 ML IV PRN (07:30)
[2020-02-25 07:48] LABS: BASOPHILS % (AUTO) 0 % (0-1); EOSINOPHILS % (AUTO) 1 % (1-7); LYMPHOCYTES % (AUTO) 7 % (22-44); MEAN CORPUSCULAR HEMOGLOBIN 28.6 pg (27.5-34.5); MEAN CORPUSCULAR HGB CONC 33.2 g/dL (33.2-36.2); MEAN PLATELET VOLUME 8.5 fL (7.4-10.4); MONOCYTES % (AUTO) 8 % (2-9); PLATELET COUNT 157 x10^3/uL (130-400); RED BLOOD COUNT 3.11 x10^6/uL (4.38-5.82); RED CELL DISTRIBUTION WIDTH 17.8 % (9.4-14.8)
[2020-02-25 07:51] LABS: ALANINE AMINOTRANSFERASE 25 U/L (12-78); ALBUMIN 1.3 g/dL (3.4-5.0); ANION GAP 8 mmol/L (5-15); CALCIUM 8.1 mg/dL (8.5-10.1); CHLORIDE 108 mmol/L (98-107)
[2020-02-25 07:53] LABS: ALKALINE PHOSPHATASE 155 U/L (45-117); BILIRUBIN,TOTAL 1.2 mg/dL (0.2-1.0); TOTAL PROTEIN 7.2 g/dL (6.4-8.2)
[2020-02-25] MEDS: RIFAMPIN 600 MG in SODIUM CHLORIDE 0.9% 100 ML IV SCH (08:30)
[2020-02-25] MEDS ORDERED: METHYLENE BLUE 50 MG/10 ML AMP ONE (08:54)
[2020-02-25] MEDS: MIDODRINE 5 MG TABLET PO SCH ×2 (09:00→16:00)
[2020-02-25] MEDS ORDERED: RIFAMPIN 600 MG in SODIUM CHLORIDE 0.9% 100 ML IV ONE (09:00)
[2020-02-25] MEDS: DOCUSATE 100 MG CAPSULE PO SCH ×2 (09:00→20:09)
[2020-02-25] MEDS ORDERED: NOREPINEPHRINE 1 MG/ML, 4ML ONE ×2 (09:28→09:58)
[2020-02-25] MEDS ORDERED: ROCURONIUM 10MG/ML,5ML ONE ×4 (09:31)
[2020-02-25] MEDS ORDERED: PROTAMINE SULFATE 10 MG/ML, 25ML ONE ×2 (09:59)
[2020-02-25] MEDS: DAPTOMYCIN 800 MG in SODIUM CHLORIDE 0.9% 100 ML IVPB SCH (10:00)
[2020-02-25] MEDS ORDERED: MILRINONE 1 MG/ML, 10ML IV ONE (10:10)
[2020-02-25 10:41] LABS: MD YES
[2020-02-25 10:44] LABS: BAND#(MANUAL) 1.31 x10^3/uL; BANDS%(MANUAL) 6 % (0-7); BASOS#(MANUAL) 0.22 x10^3/uL (0-0.1); BASOS% (MANUAL) 1 % (0-1); LYMPH#(MANUAL) 0.66 x10^3/uL (1-3.4); LYMPHS% (MANUAL) 3 % (22-44); MONOS#(MANUAL) 0.66 x10^3/uL (0.3-2.7); MONOS% (MANUAL) 3 % (2-9); SEG#(MANUAL) 19.05 x10^3/uL (1.8-6.8); SEGS% (MANUAL) 87 % (42-75)
[2020-02-25 10:45] LABS: ANISOCYTOSIS 2+; POLYCHROMASIA 1+; TOXIC GRAN 1+
[2020-02-25 10:47] LABS: <PLATELET ESTIMATE> ADEQUATE; <PLT MORPHOLOGY> NORMAL PLT MORPH
[2020-02-25] MEDS ORDERED: SODIUM BICARBONATE 1 MEQ/ML, 50ML VIAL ONE ×2 (11:05→12:28)
[2020-02-25] MEDS ORDERED: AMINOCAPROIC ACID 250 MG/ML, 20ML ONE ×3 (11:39→11:40)
[2020-02-25] MEDS ORDERED: SODIUM BICARB 8.4%, 50ML SYRINGE ONE (11:46)
[2020-02-25] MEDS ORDERED: CALCIUM CHLORIDE 10%, 10ML SYR ONE ×4 (12:08→15:40)
[2020-02-25] MEDS ORDERED: LIDOCAINE-MPF 2% ,5ML ONE (12:28)
[2020-02-25] MEDS ORDERED: HEPARIN 1,000 UNITS/ML, 30ML ONE (12:28)
[2020-02-25] MEDS ORDERED: MANNITOL 0.25 GM/ML, 50ML ONE (12:29)
[2020-02-25] MEDS ORDERED: BISACODYL 5 MG EC TABLET PO PRN (12:30)
[2020-02-25] MEDS ORDERED: GLUCAGON 1 MG IM PRN (12:30)
[2020-02-25] MEDS: KSCALE TO 4.5 IV SCH ×2 (12:30→20:09)
[2020-02-25] MEDS ORDERED: SODIUM BICARB 8.4%, 50ML SYRINGE IV PRN (12:30)
[2020-02-25] MEDS ORDERED: FENTANYL PF 100 MCG/2ML IVPush PRN (12:30)
[2020-02-25] MEDS ORDERED: SODIUM CHLORIDE 0.9% 1,000 ML IV PRN (12:30)
[2020-02-25] MEDS ORDERED: DEXTROSE 4 GM TAB.CHEW PO PRN (12:30)
[2020-02-25] MEDS ORDERED: BISACODYL 10 MG SUPP PR PRN (12:30)
[2020-02-25] MEDS ORDERED: DEXTROSE 50%, 50ML SYRINGE IVPush PRN (12:30)
[2020-02-25] MEDS ORDERED: NITROGLYCERIN/D5W PMX 250 ML IV PRN (12:30)
[2020-02-25] MEDS ORDERED: ONDANSETRON 2MG/ML, 2ML IVPush PRN (12:30)
[2020-02-25] MEDS ORDERED: MIDAZOLAM 1 MG/ML, 5ML IVPush PRN (12:30)
[2020-02-25] MEDS ORDERED: LACTATED RINGERS 1,000 ML IV PRN (12:30)
[2020-02-25] MEDS ORDERED: ACETAMINOPHEN 650 MG SUPP PR PRN (12:30)
[2020-02-25] MEDS ORDERED: PROCHLORPERAZINE 5 MG/ML, 2ML IVPush PRN (12:30)
[2020-02-25 13:16] LABS: GLUCOSE BY BLOOD GAS ANALYZER 149 mg/dL (70-110); HEMOGLOBIN BY BLOOD GAS ANALYZ 12.9 g/dL (14.0-18.0); POTASSIUM BY BLOOD GAS ANALYZR 5.7 mmol/L (3.6-5.5)
[2020-02-25 13:26] LABS: INTERNATIONAL NORMALIZED RATIO 1.3 (0.93-1.1); PROTHROMBIN TIME 13.7 Seconds (9.6-11.5)
[2020-02-25] MEDS: MIDAZOLAM HCL 50 MG in SODIUM CHLORIDE 0.9% 40 ML IV PRN (13:35)
[2020-02-25] MEDS ORDERED: morphine SULFATE 10 MG/ML, 1ML ONE (13:37)
[2020-02-25] MEDS: FENTANYL PF 1,000 MCG in SODIUM CHLORIDE 0.9% 80 ML IV PRN (13:44)
[2020-02-25] MEDS: VASOPRESSIN 20 UNIT in SODIUM CHLORIDE 0.9% 99 ML IV PRN ×2 (14:06→20:08)
[2020-02-25] MEDS ORDERED: NOREPINEPHRINE 8 MG in SODIUM CHLORIDE 0.9% 242 ML IV PRN (14:30)
[2020-02-25] MEDS ORDERED: NOVOSEVEN RT (FACTOR VIIA) RECOMB 1,000 MCG IVPush STA (15:19)
[2020-02-25 15:25] LABS: BASOPHILS % (AUTO) 0 % (0-1); EOSINOPHILS % (AUTO) 0 % (1-7); LYMPHOCYTES % (AUTO) 4 % (22-44); MEAN CORPUSCULAR HEMOGLOBIN 28.5 pg (27.5-34.5); MEAN CORPUSCULAR HGB CONC 32.4 g/dL (33.2-36.2); MEAN PLATELET VOLUME 8.3 fL (7.4-10.4); MONOCYTES % (AUTO) 6 % (2-9); NEUTROPHILS % (AUTO) 90 % (42-75); PLATELET COUNT 116 x10^3/uL (130-400); RED BLOOD COUNT 3.97 x10^6/uL (4.38-5.82); RED CELL DISTRIBUTION WIDTH 15.7 % (9.4-14.8)
[2020-02-25 15:27] LABS: MD NO
[2020-02-25] MEDS ORDERED: NOVOSEVEN RT (FACTOR VIIA) RECOMB 1,000 MCG IVPush ONE (15:30)
[2020-02-25] MEDS ORDERED: FENTANYL PF 1,000 MCG in SODIUM CHLORIDE 0.9% 80 ML IV PRN (15:30)
[2020-02-25] MEDS ORDERED: MIDAZOLAM HCL 50 MG in SODIUM CHLORIDE 0.9% 40 ML IV PRN (15:30)
[2020-02-25] MEDS ORDERED: LIDOCAINE-MPF 1%, 2ML ENDO PRN (15:30)
[2020-02-25] MEDS ORDERED: PHARMACY MAY ADJ FOR RENAL FX MC SCH (15:30)
[2020-02-25 15:33] LABS: INTERNATIONAL NORMALIZED RATIO 1.37 (0.93-1.1); PROTHROMBIN TIME 14.5 Seconds (9.6-11.5)
[2020-02-25 15:34] LABS: ALBUMIN 1.4 g/dL (3.4-5.0); ANION GAP 14 mmol/L (5-15); CALCIUM 8.5 mg/dL (8.5-10.1); CHLORIDE 112 mmol/L (98-107)
[2020-02-25 15:38] LABS: ALANINE AMINOTRANSFERASE 43 U/L (12-78); ALKALINE PHOSPHATASE 138 U/L (45-117); BILIRUBIN,TOTAL 5.4 mg/dL (0.2-1.0); CREATININE 1.88 mg/dL (0.7-1.3); TOTAL PROTEIN 5.5 g/dL (6.4-8.2)
[2020-02-25] MEDS ORDERED: SODIUM BICARBONATE 4.2%, 5ML ONE (15:42)
[2020-02-25] MEDS: NOREPINEPHRINE 8 MG in SODIUM CHLORIDE 0.9% 242 ML IV PRN ×2 (15:57→20:08)
[2020-02-25] MEDS: EPINEPHRINE 5 MG in SODIUM CHLORIDE 0.9% 245 ML IV PRN ×2 (15:58→20:09)
[2020-02-25] MEDS: INSULIN LISPRO 100 UNITS/ML, PEN SQ-INSULIN SCH ×2 (16:00→20:09)
[2020-02-25] MEDS ORDERED: CALCIUM CHLORIDE 10%, 10ML SYR IVPush ONE (16:00)
[2020-02-25] MEDS ORDERED: SODIUM BICARB 8.4%, 50ML SYRINGE IVPush ONE (16:00)
[2020-02-25] MEDS ORDERED: SODIUM BICARB 8.4%, 50ML SYRINGE IVPush STA (16:27)
[2020-02-25] MEDS ORDERED: DEXTROSE 50%, 50ML SYRINGE IVPush ONE (16:30)
[2020-02-25] MEDS ORDERED: NOVOSEVEN RT (FACTOR VIIA) RECOMB 1,000 MCG ONE (16:45)
[2020-02-25] MEDS ORDERED: FUROSEMIDE 20 MG/2 ML ONE ×2 (19:01→19:03)
[2020-02-25] MEDS ORDERED: SODIUM BICARBONATE 8.4% 100 MEQ in DEXTROSE 5% 1,000 ML IV SCH (19:30)
[2020-02-25] MEDS ORDERED: DEXTROSE 10% 1,000 ML IV SCH (19:30)
[2020-02-25 20:00] LABS: BASOPHILS % (AUTO) 0 % (0-1); EOSINOPHILS % (AUTO) 0 % (1-7); LYMPHOCYTES % (AUTO) 4 % (22-44); MEAN CORPUSCULAR HEMOGLOBIN 29.4 pg (27.5-34.5); MEAN CORPUSCULAR HGB CONC 33.2 g/dL (33.2-36.2); MEAN PLATELET VOLUME 8.7 fL (7.4-10.4); MONOCYTES % (AUTO) 5 % (2-9); NEUTROPHILS % (AUTO) 91 % (42-75); PLATELET COUNT 160 x10^3/uL (130-400); RED CELL DISTRIBUTION WIDTH 15.8 % (9.4-14.8)
[2020-02-25] MEDS: MAGNESIUM SULFATE 1 GM in SODIUM CHLORIDE 0.9% 100 ML IVPB SCH (20:00)
[2020-02-25 20:06] LABS: INTERNATIONAL NORMALIZED RATIO 1.36 (0.93-1.1); PROTHROMBIN TIME 14.4 Seconds (9.6-11.5)
[2020-02-25 20:08] LABS: ALBUMIN 1.8 g/dL (3.4-5.0); ANION GAP 14 mmol/L (5-15); CALCIUM 7.9 mg/dL (8.5-10.1); CHLORIDE 111 mmol/L (98-107); CREATININE 2.09 mg/dL (0.7-1.3)
[2020-02-25] MEDS: DEXMEDETOMIDINE 200 MCG in SODIUM CHLORIDE 0.9% 48 ML IV PRN (20:08)
[2020-02-25] MEDS: SODIUM CHLORIDE FLUSH 10ML SYR IVF SCH (20:09)
[2020-02-25 20:17] LABS: ALANINE AMINOTRANSFERASE 2254 U/L (12-78); ALKALINE PHOSPHATASE 116 U/L (45-117); BILIRUBIN,TOTAL 6.7 mg/dL (0.2-1.0); TOTAL PROTEIN 4.9 g/dL (6.4-8.2)
[2020-02-25 20:25] LABS: MD NO
[2020-02-25 21:57] LABS: MICROSCOPIC INDICATED
[2020-02-25] MEDS ORDERED: FUROSEMIDE 20 MG/2 ML IV ONE (23:30)
[2020-02-26] MEDS: NOREPINEPHRINE 8 MG in SODIUM CHLORIDE 0.9% 242 ML IV PRN ×3 (00:19→08:53)
[2020-02-26 00:46] LABS: MEAN CORPUSCULAR HEMOGLOBIN 29.2 pg (27.5-34.5); MEAN CORPUSCULAR HGB CONC 33.5 g/dL (33.2-36.2); MEAN PLATELET VOLUME 9.2 fL (7.4-10.4); PLATELET COUNT 175 x10^3/uL (130-400); RED BLOOD COUNT 4.23 x10^6/uL (4.38-5.82); RED CELL DISTRIBUTION WIDTH 15.5 % (9.4-14.8)
[2020-02-26 00:51] LABS: ANION GAP 16 mmol/L (5-15); CALCIUM 7.4 mg/dL (8.5-10.1); CHLORIDE 113 mmol/L (98-107); CREATININE 2.23 mg/dL (0.7-1.3)
[2020-02-26] MEDS: KSCALE TO 4.5 IV SCH ×2 (00:58→05:34)
[2020-02-26] MEDS: MIDAZOLAM HCL 50 MG in SODIUM CHLORIDE 0.9% 40 ML IV PRN ×4 (01:09→18:18)
[2020-02-26 01:16] LABS: MD YES
[2020-02-26 01:18] LABS: EOS#(MANUAL) 0.61 x10^3/uL (0.0-0.4); EOS% (MANUAL) 2 % (1-7); LYMPH#(MANUAL) 3.66 x10^3/uL (1-3.4); LYMPHS% (MANUAL) 12 % (22-44); MONOS#(MANUAL) 1.83 x10^3/uL (0.3-2.7); MONOS% (MANUAL) 6 % (2-9); SEGS% (MANUAL) 80 % (42-75)
[2020-02-26 01:19] LABS: ANISOCYTOSIS 1+; TOXIC GRAN 1+
[2020-02-26 01:20] LABS: PMNS WITH VACUOLES 1+
[2020-02-26 01:21] LABS: <PLATELET ESTIMATE> ADEQUATE; <PLT MORPHOLOGY> NORMAL PLT MORPH
[2020-02-26] MEDS ORDERED: ACETAMINOPHEN 650 MG/20.3 ML UDC ONE (02:11)
[2020-02-26] MEDS: ACETAMINOPHEN 325 MG TABLET PO PRN ×2 (02:13→10:14)
[2020-02-26] MEDS: VASOPRESSIN 20 UNIT in SODIUM CHLORIDE 0.9% 99 ML IV PRN ×2 (03:02→18:19)
[2020-02-26] MEDS: FENTANYL PF 1,000 MCG in SODIUM CHLORIDE 0.9% 80 ML IV PRN ×3 (04:15→20:55)
[2020-02-26 04:52] LABS: ANION GAP 15 mmol/L (5-15); CALCIUM 7.3 mg/dL (8.5-10.1); CHLORIDE 111 mmol/L (98-107); CREATININE 2.63 mg/dL (0.7-1.3)
[2020-02-26 05:15] LABS: MEAN CORPUSCULAR HEMOGLOBIN 29.1 pg (27.5-34.5); MEAN CORPUSCULAR HGB CONC 33.6 g/dL (33.2-36.2); MEAN PLATELET VOLUME 9.6 fL (7.4-10.4); PLATELET COUNT 179 x10^3/uL (130-400); RED BLOOD COUNT 4.09 x10^6/uL (4.38-5.82); RED CELL DISTRIBUTION WIDTH 15.2 % (9.4-14.8)
[2020-02-26] MEDS ORDERED: FUROSEMIDE 40 MG/4 ML ONE (05:26)
[2020-02-26] MEDS ORDERED: FUROSEMIDE 40 MG/4 ML IV ONE (05:30)
[2020-02-26] MEDS: INSULIN LISPRO 100 UNITS/ML, PEN SQ-INSULIN SCH ×6 (05:34→20:04)
[2020-02-26] MEDS: CEFTAROLINE 600 MG in SODIUM CHLORIDE 0.9% 100 ML IV SCH ×3 (05:34→22:00)
[2020-02-26 05:55] LABS: MD YES
[2020-02-26 05:58] LABS: BANDS%(MANUAL) 5 % (0-7); BILIRUBIN, DIRECT 5.5 mg/dL (0.1-0.2); BILIRUBIN,INDIRECT 1.6 mg/dL (0.0-2.0); BILIRUBIN,TOTAL 7.1 mg/dL (0.2-1.0); LYMPHS% (MANUAL) 5 % (22-44); METAMYELOCYTES% (MANUAL) 2 % (0-1); MONOS% (MANUAL) 2 % (2-9); SEGS% (MANUAL) 86 % (42-75)
[2020-02-26 05:59] LABS: <PLATELET ESTIMATE> ADEQUATE; ANISOCYTOSIS 1+
[2020-02-26 06:00] LABS: SMUDGE CELLS 1+
[2020-02-26 06:03] LABS: GIANT PLATELETS 1+; LARGE PLATELETS 1+
[2020-02-26] MEDS ORDERED: DEXTROSE 50%, 50ML SYRINGE IVPush ONE (06:30)
[2020-02-26] MEDS ORDERED: INSULIN REGULAR 100 UNITS/ML, 3ML VIAL IVPush ONE (06:30)
[2020-02-26] MEDS ORDERED: CALCIUM GLUCONATE 4.6 MEQ in SODIUM CHLORIDE 0.9% 100 ML IV ONE (06:30)
[2020-02-26] MEDS: RIFAMPIN 600 MG in SODIUM CHLORIDE 0.9% 100 ML IV SCH (08:51)
[2020-02-26] MEDS: SODIUM BICARBONATE 8.4% 100 MEQ in DEXTROSE 5% 1,000 ML IV SCH ×2 (08:51→21:07)
[2020-02-26] MEDS ORDERED: METOPROLOL TARTRATE 25 MG TAB PO/NG SCH (09:00)
[2020-02-26] MEDS: PANTOPRAZOLE 40 MG IV IV SCH (09:03)
[2020-02-26] MEDS: MUPIROCIN OINT 2%, 22GM NAS SCH ×2 (09:04→20:05)
[2020-02-26] MEDS: SODIUM CHLORIDE FLUSH 10ML SYR IVF SCH ×2 (09:04→19:51)
[2020-02-26] MEDS: DOCUSATE 100 MG CAPSULE PO SCH ×2 (09:04→20:05)
[2020-02-26] MEDS: ASPIRIN 81 MG TABLET EC PO SCH (09:05)
[2020-02-26] MEDS: DAPTOMYCIN 800 MG in SODIUM CHLORIDE 0.9% 100 ML IVPB SCH (10:36)
[2020-02-26] MEDS ORDERED: ALBUMIN HUMAN 25% 100 ML ONE (12:28)
[2020-02-26] MEDS: MAGNESIUM SULFATE 1 GM in SODIUM CHLORIDE 0.9% 100 ML IVPB SCH (19:10)
[2020-02-26] MEDS: CHLORHEXIDINE 15 ML UDC MM SCH (20:05)
[2020-02-27] MEDS: MIDAZOLAM HCL 50 MG in SODIUM CHLORIDE 0.9% 40 ML IV PRN ×3 (02:27→17:58)
[2020-02-27] MEDS: FENTANYL PF 1,000 MCG in SODIUM CHLORIDE 0.9% 80 ML IV PRN ×3 (03:35→17:58)
[2020-02-27] MEDS: INSULIN LISPRO 100 UNITS/ML, PEN SQ-INSULIN SCH ×4 (04:29→22:00)
[2020-02-27 04:55] LABS: MEAN CORPUSCULAR HEMOGLOBIN 29.5 pg (27.5-34.5); MEAN CORPUSCULAR HGB CONC 34.1 g/dL (33.2-36.2); MEAN PLATELET VOLUME 10.1 fL (7.4-10.4); PLATELET COUNT 86 x10^3/uL (130-400); RED BLOOD COUNT 3.08 x10^6/uL (4.38-5.82); RED CELL DISTRIBUTION WIDTH 15.8 % (9.4-14.8)
[2020-02-27 05:07] LABS: ANION GAP 8 mmol/L (5-15); BILIRUBIN, DIRECT 4.4 mg/dL (0.1-0.2); CALCIUM 6.8 mg/dL (8.5-10.1); CHLORIDE 107 mmol/L (98-107); CREATININE 2.67 mg/dL (0.7-1.3)
[2020-02-27 05:22] LABS: BILIRUBIN,INDIRECT 1.3 mg/dL (0.0-2.0); BILIRUBIN,TOTAL 5.7 mg/dL (0.2-1.0)
[2020-02-27] MEDS: CEFTAROLINE 600 MG in SODIUM CHLORIDE 0.9% 100 ML IV SCH ×3 (05:55→22:04)
[2020-02-27 06:14] LABS: MD YES
[2020-02-27 06:15] LABS: BAND#(MANUAL) 1.25 x10^3/uL; BANDS%(MANUAL) 7 % (0-7); EOS#(MANUAL) 0.18 x10^3/uL (0.0-0.4); EOS% (MANUAL) 1 % (1-7); LYMPH#(MANUAL) 1.61 x10^3/uL (1-3.4); LYMPHS% (MANUAL) 9 % (22-44); MONOS#(MANUAL) 0.54 x10^3/uL (0.3-2.7); MONOS% (MANUAL) 3 % (2-9); SEG#(MANUAL) 14.32 x10^3/uL (1.8-6.8); SEGS% (MANUAL) 80 % (42-75)
[2020-02-27 06:24] LABS: <PLATELET ESTIMATE> DECREASED
[2020-02-27 06:25] LABS: <RBC MORPHOLOGY> NORMAL; LARGE PLATELETS 1+; PMNS WITH VACUOLES 1+
[2020-02-27] MEDS ORDERED: CALCIUM CARBONATE 500 MG TAB.CHEW PO PRN (07:00)
[2020-02-27] MEDS ORDERED: POTASSIUM CHLORIDE 10% 40 MEQ/30 ML UDC PO/NG ONE (08:30)
[2020-02-27] MEDS: SODIUM CHLORIDE FLUSH 10ML SYR IVF SCH ×2 (08:54→20:24)
[2020-02-27] MEDS: DOCUSATE 100 MG CAPSULE PO SCH ×2 (08:54→21:00)
[2020-02-27] MEDS: PANTOPRAZOLE 40 MG IV IV SCH (08:54)
[2020-02-27] MEDS: ASPIRIN 81 MG TABLET EC PO SCH (08:54)
[2020-02-27] MEDS: MUPIROCIN OINT 2%, 22GM NAS SCH ×2 (08:54→20:24)
[2020-02-27] MEDS: RIFAMPIN 600 MG in SODIUM CHLORIDE 0.9% 100 ML IV SCH (08:54)
[2020-02-27] MEDS: CHLORHEXIDINE 15 ML UDC MM SCH ×2 (10:49→20:42)
[2020-02-27] MEDS: DAPTOMYCIN 800 MG in SODIUM CHLORIDE 0.9% 100 ML IVPB SCH (11:06)
[2020-02-27] MEDS: MAGNESIUM SULFATE 1 GM in SODIUM CHLORIDE 0.9% 100 ML IVPB SCH (20:24)
[2020-02-27] MEDS: DOCUSATE 50 MG/5 ML, 10ML UDC PO/NG SCH (22:13)
[2020-02-28] MEDS: FENTANYL PF 1,000 MCG in SODIUM CHLORIDE 0.9% 80 ML IV PRN ×3 (02:55→18:02)
[2020-02-28] MEDS: INSULIN LISPRO 100 UNITS/ML, PEN SQ-INSULIN SCH ×4 (03:46→21:58)
[2020-02-28 04:21] LABS: MEAN CORPUSCULAR HEMOGLOBIN 29.1 pg (27.5-34.5); MEAN CORPUSCULAR HGB CONC 33.1 g/dL (33.2-36.2); MEAN PLATELET VOLUME 10.2 fL (7.4-10.4); PLATELET COUNT 90 x10^3/uL (130-400); RED BLOOD COUNT 3.01 x10^6/uL (4.38-5.82); RED CELL DISTRIBUTION WIDTH 15.5 % (9.4-14.8)
[2020-02-28 04:28] LABS: ANION GAP 6 mmol/L (5-15); CALCIUM 7.1 mg/dL (8.5-10.1); CHLORIDE 110 mmol/L (98-107)
[2020-02-28 04:30] LABS: BILIRUBIN,TOTAL 6.2 mg/dL (0.2-1.0); CREATININE 2.49 mg/dL (0.7-1.3)
[2020-02-28 04:56] LABS: MD YES
[2020-02-28 05:00] LABS: BAND#(MANUAL) 0.37 x10^3/uL; BANDS%(MANUAL) 2 % (0-7); BASOS#(MANUAL) 0.19 x10^3/uL (0-0.1); BASOS% (MANUAL) 1 % (0-1); LYMPH#(MANUAL) 1.86 x10^3/uL (1-3.4); LYMPHS% (MANUAL) 10 % (22-44); MONOS#(MANUAL) 0.19 x10^3/uL (0.3-2.7); MONOS% (MANUAL) 1 % (2-9); MYELOCYTES# (MANUAL) 0.37 x10^3/uL (0-0); MYELOCYTES% (MANUAL) 2 % (0-0); SEG#(MANUAL) 15.62 x10^3/uL (1.8-6.8); SEGS% (MANUAL) 84 % (42-75)
[2020-02-28 05:01] LABS: ANISOCYTOSIS 1+; OVALOCYTES 1+; POLYCHROMASIA 1+
[2020-02-28 05:02] LABS: <PLATELET ESTIMATE> DECREASED; LARGE PLATELETS 1+; PMNS WITH VACUOLES 1+; SMUDGE CELLS 1+; TOXIC GRAN 1+
[2020-02-28] MEDS: CEFTAROLINE 600 MG in SODIUM CHLORIDE 0.9% 100 ML IV SCH (05:36)
[2020-02-28] MEDS ORDERED: POTASSIUM CHLORIDE 10% 40 MEQ/30 ML UDC PO ONE (06:30)
[2020-02-28] MEDS: MIDAZOLAM HCL 50 MG in SODIUM CHLORIDE 0.9% 40 ML IV PRN (06:51)
[2020-02-28] MEDS: CEFTAROLINE 400 MG in SODIUM CHLORIDE 0.9% 100 ML IV SCH ×2 (09:11→20:58)
[2020-02-28] MEDS: MUPIROCIN OINT 2%, 22GM NAS SCH ×2 (09:15→20:58)
[2020-02-28] MEDS: SODIUM CHLORIDE FLUSH 10ML SYR IVF SCH ×2 (09:15→20:58)
[2020-02-28] MEDS: PANTOPRAZOLE 40 MG IV IV SCH (09:18)
[2020-02-28] MEDS: ASPIRIN 81 MG TABLET EC PO SCH (09:18)
[2020-02-28] MEDS: CHLORHEXIDINE 15 ML UDC MM SCH (09:18)
[2020-02-28] MEDS: DOCUSATE 50 MG/5 ML, 10ML UDC PO/NG SCH ×2 (09:19→21:02)
[2020-02-28] MEDS: OXYcodone IR 5MG TABLET PO PRN ×2 (10:04→14:52)
[2020-02-28] MEDS: ASPIRIN 81 MG TABLET CHEW PO SCH (10:04)
[2020-02-28] MEDS: RIFAMPIN 600 MG in SODIUM CHLORIDE 0.9% 100 ML IV SCH (10:10)
[2020-02-28] MEDS: DAPTOMYCIN 800 MG in SODIUM CHLORIDE 0.9% 100 ML IVPB SCH (11:10)
[2020-02-28] MEDS: DEXMEDETOMIDINE 200 MCG in SODIUM CHLORIDE 0.9% 48 ML IV PRN ×3 (12:20→21:08)
[2020-02-28 13:29] LABS: HCT (SEDRATE) 28.2 % (39.2-51.8)
[2020-02-28] MEDS: ACETAMINOPHEN 325 MG TABLET PO PRN (14:52)
[2020-02-28] MEDS ORDERED: FENTANYL PF 2,500 MCG in SODIUM CHLORIDE 0.9% 200 ML IV PRN (23:45)
[2020-02-29] MEDS ORDERED: DEXMEDETOMIDINE 400 MCG in SODIUM CHLORIDE 0.9% 96 ML IV PRN (01:30)
[2020-02-29] MEDS: INSULIN LISPRO 100 UNITS/ML, PEN SQ-INSULIN SCH ×4 (04:00→20:37)
[2020-02-29 04:18] LABS: MEAN CORPUSCULAR HEMOGLOBIN 29.3 pg (27.5-34.5); MEAN PLATELET VOLUME 10.4 fL (7.4-10.4); PLATELET COUNT 94 x10^3/uL (130-400); RED BLOOD COUNT 2.93 x10^6/uL (4.38-5.82); RED CELL DISTRIBUTION WIDTH 15.6 % (9.4-14.8)
[2020-02-29 04:29] LABS: ANION GAP 7 mmol/L (5-15); CALCIUM 7.4 mg/dL (8.5-10.1); CHLORIDE 112 mmol/L (98-107); CREATININE 2.22 mg/dL (0.7-1.3)
[2020-02-29 04:30] LABS: BILIRUBIN,TOTAL 5.8 mg/dL (0.2-1.0)
[2020-02-29 04:59] LABS: MD YES
[2020-02-29 05:02] LABS: <PLATELET ESTIMATE> DECREASED; ANISOCYTOSIS 1+; BAND#(MANUAL) 0.13 x10^3/uL; BANDS%(MANUAL) 1 % (0-7); BASOS#(MANUAL) 0.13 x10^3/uL (0-0.1); BASOS% (MANUAL) 1 % (0-1); EOS#(MANUAL) 0.27 x10^3/uL (0.0-0.4); EOS% (MANUAL) 2 % (1-7); LARGE PLATELETS 1+; LYMPH#(MANUAL) 1.21 x10^3/uL (1-3.4); LYMPHS% (MANUAL) 9 % (22-44); MONOS#(MANUAL) 0.67 x10^3/uL (0.3-2.7); MONOS% (MANUAL) 5 % (2-9); POLYCHROMASIA 1+; SEG#(MANUAL) 10.99 x10^3/uL (1.8-6.8); SEGS% (MANUAL) 82 % (42-75)
[2020-02-29] MEDS ORDERED: POTASSIUM CHLORIDE 20 MEQ PACKET PO ONE (08:30)
[2020-02-29] MEDS: DOCUSATE 50 MG/5 ML, 10ML UDC PO/NG SCH ×2 (08:38→20:05)
[2020-02-29] MEDS: PANTOPRAZOLE 40 MG IV IV SCH (08:38)
[2020-02-29] MEDS: ASPIRIN 81 MG TABLET CHEW PO SCH (08:38)
[2020-02-29] MEDS: SODIUM CHLORIDE FLUSH 10ML SYR IVF SCH ×2 (08:39→19:58)
[2020-02-29] MEDS: MUPIROCIN OINT 2%, 22GM NAS SCH ×2 (08:39→19:58)
[2020-02-29] MEDS: DAPTOMYCIN 800 MG in SODIUM CHLORIDE 0.9% 100 ML IVPB SCH (08:53)
[2020-02-29] MEDS ORDERED: ASPIRIN 81 MG TABLET CHEW PO SCH (09:00)
[2020-02-29] MEDS ORDERED: POTASSIUM CHLORIDE 10% 40 MEQ/30 ML UDC NG ONE (09:30)
[2020-02-29] MEDS ORDERED: POTASSIUM CHLORIDE 10% 40 MEQ/30 ML UDC PO ONE (09:30)
[2020-02-29] MEDS: RIFAMPIN 600 MG in SODIUM CHLORIDE 0.9% 100 ML IV SCH (09:52)
[2020-02-29] MEDS ORDERED: POTASSIUM CHLORIDE PMX 100 ML IV ONE (10:30)
[2020-02-29] MEDS: CEFTAROLINE 400 MG in SODIUM CHLORIDE 0.9% 100 ML IV SCH ×2 (12:52→20:04)
[2020-02-29] MEDS: OXYcodone IR 5MG TABLET PO PRN ×2 (15:52→20:05)
[2020-02-29 17:10] LABS: INTERNATIONAL NORMALIZED RATIO 1.33 (0.93-1.1); PROTHROMBIN TIME 14.1 Seconds (9.6-11.5)
[2020-02-29] MEDS ORDERED: WARFARIN 5 MG TABLET PO-COUM ONE (18:30)
[2020-03-01] MEDS: OXYcodone IR 5MG TABLET PO PRN ×6 (00:06→20:38)
[2020-03-01 04:23] LABS: BASOPHILS % (AUTO) 1 % (0-1); EOSINOPHILS % (AUTO) 2 % (1-7); LYMPHOCYTES % (AUTO) 11 % (22-44); MEAN PLATELET VOLUME 9.7 fL (7.4-10.4); MONOCYTES % (AUTO) 6 % (2-9); NEUTROPHILS % (AUTO) 81 % (42-75); PLATELET COUNT 50 x10^3/uL (130-400); RED BLOOD COUNT 2.71 x10^6/uL (4.38-5.82)
[2020-03-01 04:34] LABS: INTERNATIONAL NORMALIZED RATIO 1.46 (0.93-1.1); PROTHROMBIN TIME 15.4 Seconds (9.6-11.5)
[2020-03-01 04:35] LABS: ALBUMIN 1.4 g/dL (3.4-5.0); ANION GAP 5 mmol/L (5-15); CALCIUM 7.1 mg/dL (8.5-10.1); CHLORIDE 112 mmol/L (98-107); MD NO
[2020-03-01 04:38] LABS: ALANINE AMINOTRANSFERASE 637 U/L (12-78); ALKALINE PHOSPHATASE 218 U/L (45-117); BILIRUBIN,INDIRECT 0.7 mg/dL (0.0-2.0); BILIRUBIN,TOTAL 3.7 mg/dL (0.2-1.0); CREATININE 1.77 mg/dL (0.7-1.3); TOTAL PROTEIN 5.4 g/dL (6.4-8.2)
[2020-03-01] MEDS: INSULIN LISPRO 100 UNITS/ML, PEN SQ-INSULIN SCH ×4 (04:39→22:00)
[2020-03-01] MEDS: CEFTAROLINE 400 MG in SODIUM CHLORIDE 0.9% 100 ML IV SCH (04:51)
[2020-03-01] MEDS ORDERED: FUROSEMIDE 40 MG/4 ML IV ONE (07:30)
[2020-03-01] MEDS ORDERED: POTASSIUM CHLORIDE 40 MEQ in SODIUM CHLORIDE 0.9% 500 ML IV ONE (07:30)
[2020-03-01] MEDS ORDERED: POTASSIUM CHLORIDE 40 MEQ in SODIUM CHLORIDE 0.9% 100 ML IV ONE (08:00)
[2020-03-01] MEDS: ASPIRIN 81 MG TABLET CHEW PO SCH (08:00)
[2020-03-01] MEDS: PANTOPRAZOLE 40 MG IV IV SCH (08:00)
[2020-03-01] MEDS ORDERED: POTASSIUM CHLORIDE 20 MEQ TAB.ER.PRT PO SCH (08:00)
[2020-03-01] MEDS: DOCUSATE 50 MG/5 ML, 10ML UDC PO/NG SCH ×2 (08:00→21:00)
[2020-03-01] MEDS: MUPIROCIN OINT 2%, 22GM NAS SCH (08:02)
[2020-03-01] MEDS ORDERED: ALBUMIN HUMAN 25% 100 ML ONE (08:13)
[2020-03-01] MEDS ORDERED: ALBUMIN HUMAN 25% 100 ML IV ONE (08:30)
[2020-03-01] MEDS: SODIUM CHLORIDE FLUSH 10ML SYR IVF SCH ×2 (10:13→21:00)
[2020-03-01] MEDS: DAPTOMYCIN 800 MG in SODIUM CHLORIDE 0.9% 100 ML IVPB SCH (10:13)
[2020-03-01] MEDS: RIFAMPIN 600 MG in SODIUM CHLORIDE 0.9% 100 ML IV SCH (11:43)
[2020-03-01] MEDS: ACETAMINOPHEN 325 MG TABLET PO PRN ×2 (12:46→21:34)
[2020-03-01] MEDS: POTASSIUM CHLORIDE 10% 40 MEQ/30 ML UDC PO SCH ×2 (15:54→21:03)
[2020-03-01 17:12] VITALS: BP 149/66
[2020-03-01] MEDS: LINEZOLID PMX 600MG/300ML 300 ML IV SCH (17:22)
[2020-03-01] MEDS ORDERED: WARFARIN 5 MG TABLET PO-COUM ONE (18:00)
[2020-03-02] MEDS: OXYcodone IR 5MG TABLET PO PRN ×5 (00:25→21:47)
[2020-03-02] MEDS: INSULIN LISPRO 100 UNITS/ML, PEN SQ-INSULIN SCH ×4 (03:46→21:47)
[2020-03-02 03:48] VITALS: BP 133/79
[2020-03-02 05:11] LABS: BASOPHILS % (AUTO) 1 % (0-1); EOSINOPHILS % (AUTO) 4 % (1-7); LYMPHOCYTES % (AUTO) 10 % (22-44); MEAN CORPUSCULAR HEMOGLOBIN 29.8 pg (27.5-34.5); MEAN CORPUSCULAR HGB CONC 32.8 g/dL (33.2-36.2); MONOCYTES % (AUTO) 7 % (2-9); NEUTROPHILS % (AUTO) 78 % (42-75); PLATELET COUNT 127 x10^3/uL (130-400); RED BLOOD COUNT 3.16 x10^6/uL (4.38-5.82); RED CELL DISTRIBUTION WIDTH 16.4 % (9.4-14.8)
[2020-03-02 05:19] LABS: MD NO
[2020-03-02 05:20] LABS: INTERNATIONAL NORMALIZED RATIO 1.85 (0.93-1.1); PROTHROMBIN TIME 19.5 Seconds (9.6-11.5)
[2020-03-02 05:22] LABS: ANION GAP 5 mmol/L (5-15); CALCIUM 7.5 mg/dL (8.5-10.1); CHLORIDE 109 mmol/L (98-107); CREATININE 1.37 mg/dL (0.7-1.3)
[2020-03-02 05:24] LABS: BILIRUBIN,TOTAL 2.5 mg/dL (0.2-1.0)
[2020-03-02] MEDS: LINEZOLID PMX 600MG/300ML 300 ML IV SCH ×2 (05:33→16:57)
[2020-03-02] MEDS: PANTOPRAZOLE 40MG TABLET PO SCH (05:33)
[2020-03-02 07:43] VITALS: BP 146/61
[2020-03-02] MEDS ORDERED: POTASSIUM CHLORIDE 40 MEQ in SODIUM CHLORIDE 0.9% 100 ML IV ONE (08:00)
[2020-03-02] MEDS ORDERED: MAGNESIUM SULFATE 1 GM in SODIUM CHLORIDE 0.9% 50 ML IV ONE (08:30)
[2020-03-02] MEDS: SODIUM CHLORIDE FLUSH 10ML SYR IVF SCH ×2 (09:00→21:46)
[2020-03-02] MEDS: DOCUSATE 50 MG/5 ML, 10ML UDC PO/NG SCH ×2 (09:39→21:00)
[2020-03-02] MEDS: ASPIRIN 81 MG TABLET CHEW PO SCH (09:39)
[2020-03-02] MEDS: POTASSIUM CHLORIDE 20 MEQ TAB.ER.PRT PO SCH ×2 (09:40→16:57)
[2020-03-02] MEDS ORDERED: MORPHINE SULFATE 4 MG/ML, 1ML IVPush ONE (11:00)
[2020-03-02] MEDS: RIFAMPIN 600 MG in SODIUM CHLORIDE 0.9% 100 ML IV SCH (13:12)
[2020-03-02] MEDS: DAPTOMYCIN 800 MG in SODIUM CHLORIDE 0.9% 100 ML IVPB SCH (13:12)
[2020-03-02 13:59] VITALS: BP 147/79
[2020-03-02] MEDS ORDERED: WARFARIN 5 MG TABLET PO-COUM ONE (17:00)
[2020-03-02 20:16] VITALS: BP 134/72
[2020-03-03 01:25] VITALS: BP 140/72
[2020-03-03] MEDS: OXYcodone IR 5MG TABLET PO PRN ×4 (01:58→14:39)
[2020-03-03] MEDS: ACETAMINOPHEN 325 MG TABLET PO PRN ×3 (02:58→22:48)
[2020-03-03] MEDS: INSULIN LISPRO 100 UNITS/ML, PEN SQ-INSULIN SCH ×3 (04:18→16:54)
[2020-03-03] MEDS: LINEZOLID PMX 600MG/300ML 300 ML IV SCH ×2 (05:29→17:53)
[2020-03-03] MEDS: PANTOPRAZOLE 40MG TABLET PO SCH (05:29)
[2020-03-03 06:27] LABS: INTERNATIONAL NORMALIZED RATIO 2.77 (0.93-1.1); PROTHROMBIN TIME 29.1 Seconds (9.6-11.5)
[2020-03-03 06:30] LABS: ANION GAP 6 mmol/L (5-15); CALCIUM 6.2 mg/dL (8.5-10.1); CHLORIDE 111 mmol/L (98-107)
[2020-03-03 06:33] LABS: BILIRUBIN,TOTAL 2.1 mg/dL (0.2-1.0); CREATININE 0.88 mg/dL (0.7-1.3)
[2020-03-03 06:37] LABS: BASOPHILS % (AUTO) 1 % (0-1); EOSINOPHILS % (AUTO) 3 % (1-7); LYMPHOCYTES % (AUTO) 12 % (22-44); MEAN CORPUSCULAR HEMOGLOBIN 30.3 pg (27.5-34.5); MEAN CORPUSCULAR HGB CONC 33.2 g/dL (33.2-36.2); MEAN PLATELET VOLUME 9.8 fL (7.4-10.4); MONOCYTES % (AUTO) 8 % (2-9); NEUTROPHILS % (AUTO) 76 % (42-75); PLATELET COUNT 131 x10^3/uL (130-400); RED BLOOD COUNT 3.06 x10^6/uL (4.38-5.82); RED CELL DISTRIBUTION WIDTH 17.1 % (9.4-14.8)
[2020-03-03] MEDS ORDERED: MAGNESIUM SULFATE/D5W 100 ML IV ONE (07:00)
[2020-03-03] MEDS ORDERED: POTASSIUM CHLORIDE 20 MEQ TAB.ER.PRT PO ONE ×2 (07:00→09:00)
[2020-03-03] MEDS ORDERED: POTASSIUM CHLORIDE 40 MEQ in SODIUM CHLORIDE 0.9% 500 ML IV ONE ×3 (07:00→18:00)
[2020-03-03 07:02] LABS: MD NO
[2020-03-03 07:37] VITALS: BP 137/81
[2020-03-03] MEDS: DOCUSATE 50 MG/5 ML, 10ML UDC PO/NG SCH ×2 (08:09→21:29)
[2020-03-03] MEDS: ASPIRIN 81 MG TABLET CHEW PO SCH (08:10)
[2020-03-03] MEDS: SODIUM CHLORIDE FLUSH 10ML SYR IVF SCH ×2 (08:14→21:00)
[2020-03-03] MEDS: POTASSIUM CHLORIDE 20 MEQ TAB.ER.PRT PO SCH ×2 (10:18→17:51)
[2020-03-03] MEDS ORDERED: morphine SULFATE ORAL.CONC 20 MG/ML PO PRN (10:30)
[2020-03-03] MEDS ORDERED: MORPHINE 2 MG/ML PO PRN (11:00)
[2020-03-03 12:25] VITALS: BP 147/88
[2020-03-03] MEDS: MORPHINE SULFATE 4 MG/ML, 1ML IV PRN ×3 (12:26→21:29)
[2020-03-03] MEDS: DAPTOMYCIN 800 MG in SODIUM CHLORIDE 0.9% 100 ML IVPB SCH (13:22)
[2020-03-03] MEDS: RIFAMPIN 600 MG in SODIUM CHLORIDE 0.9% 100 ML IV SCH (14:16)
[2020-03-03 15:42] LABS: ANION GAP 6 mmol/L (5-15); CALCIUM 6.8 mg/dL (8.5-10.1); CHLORIDE 110 mmol/L (98-107); CREATININE 0.94 mg/dL (0.7-1.3)
[2020-03-03] MEDS ORDERED: MAGNESIUM SULFATE 1 GM in SODIUM CHLORIDE 0.9% 50 ML IV ONE (17:00)
[2020-03-03] MEDS ORDERED: WARFARIN 5 MG TABLET PO-COUM ONE (17:47)
[2020-03-03] MEDS ORDERED: WARFARIN 2.5 MG TABLET PO-COUM ONE (18:00)
[2020-03-03 19:16] VITALS: BP 120/72
[2020-03-04] MEDS: OXYcodone IR 5MG TABLET PO PRN ×2 (00:03→04:46)
[2020-03-04 01:30] VITALS: BP 126/70
[2020-03-04] MEDS: MORPHINE SULFATE 4 MG/ML, 1ML IV PRN ×6 (01:59→22:15)
[2020-03-04 05:37] LABS: INTERNATIONAL NORMALIZED RATIO 2.75 (0.93-1.1); PROTHROMBIN TIME 28.9 Seconds (9.6-11.5)
[2020-03-04 05:46] LABS: ANION GAP 4 mmol/L (5-15); BASOPHILS % (AUTO) 1 % (0-1); CHLORIDE 108 mmol/L (98-107); EOSINOPHILS % (AUTO) 3 % (1-7); LYMPHOCYTES % (AUTO) 11 % (22-44); MEAN CORPUSCULAR HEMOGLOBIN 30.1 pg (27.5-34.5); MEAN CORPUSCULAR HGB CONC 33.2 g/dL (33.2-36.2); MEAN PLATELET VOLUME 9.9 fL (7.4-10.4); MONOCYTES % (AUTO) 9 % (2-9); NEUTROPHILS % (AUTO) 76 % (42-75); PLATELET COUNT 155 x10^3/uL (130-400); RED BLOOD COUNT 2.86 x10^6/uL (4.38-5.82); RED CELL DISTRIBUTION WIDTH 17.1 % (9.4-14.8)
[2020-03-04 05:47] LABS: MD NO
[2020-03-04 05:49] LABS: BILIRUBIN,TOTAL 1.9 mg/dL (0.2-1.0); CREATININE 0.97 mg/dL (0.7-1.3)
[2020-03-04] MEDS: LINEZOLID PMX 600MG/300ML 300 ML IV SCH ×2 (06:37→16:59)
[2020-03-04] MEDS: PANTOPRAZOLE 40MG TABLET PO SCH (06:45)
[2020-03-04 08:00] VITALS: BP 138/76
[2020-03-04] MEDS: DOCUSATE 50 MG/5 ML, 10ML UDC PO/NG SCH ×2 (08:37→22:03)
[2020-03-04] MEDS: ASPIRIN 81 MG TABLET CHEW PO SCH (08:38)
[2020-03-04] MEDS: SODIUM CHLORIDE FLUSH 10ML SYR IVF SCH ×2 (08:38→22:03)
[2020-03-04] MEDS ORDERED: MAGNESIUM SULFATE 1 GM in SODIUM CHLORIDE 0.9% 50 ML IV ONE (10:00)
[2020-03-04] MEDS: POTASSIUM CHLORIDE 20 MEQ TAB.ER.PRT PO SCH ×2 (10:25→16:59)
[2020-03-04] MEDS: MAGNESIUM CHLORIDE 70MG TAB DR PO SCH ×2 (10:25→22:03)
[2020-03-04] MEDS ORDERED: MAGNESIUM SULFATE IV ONE (10:30)
[2020-03-04] MEDS ORDERED: D5W IV ONE (10:30)
[2020-03-04] MEDS ORDERED: morphine SULFATE 10 MG/ML, 1ML ONE (10:33)
[2020-03-04] MEDS ORDERED: OxyconTIN ER 10 MG TAB.ER ONE (10:39)
[2020-03-04] MEDS: OxyconTIN ER 15 MG TAB.ER PO SCH ×2 (10:42→23:18)
[2020-03-04] MEDS: DAPTOMYCIN 800 MG in SODIUM CHLORIDE 0.9% 100 ML IVPB SCH (12:01)
[2020-03-04] MEDS: RIFAMPIN 600 MG in SODIUM CHLORIDE 0.9% 100 ML IV SCH (13:11)
[2020-03-04 13:49] VITALS: BP 117/61
[2020-03-04 20:52] VITALS: BP 131/75
[2020-03-04] MEDS ORDERED: OxyconTIN ER 20 MG TAB.ER ONE (23:04)
[2020-03-05 00:23] VITALS: BP 122/75
[2020-03-05] MEDS: MORPHINE SULFATE 4 MG/ML, 1ML IV PRN ×6 (02:25→23:56)
[2020-03-05 04:29] LABS: BASOPHILS % (AUTO) 1 % (0-1); EOSINOPHILS % (AUTO) 2 % (1-7); LYMPHOCYTES % (AUTO) 12 % (22-44); MEAN CORPUSCULAR HEMOGLOBIN 29.6 pg (27.5-34.5); MEAN CORPUSCULAR HGB CONC 32.1 g/dL (33.2-36.2); MEAN PLATELET VOLUME 9.5 fL (7.4-10.4); MONOCYTES % (AUTO) 9 % (2-9); NEUTROPHILS % (AUTO) 77 % (42-75); PLATELET COUNT 217 x10^3/uL (130-400); RED BLOOD COUNT 2.81 x10^6/uL (4.38-5.82); RED CELL DISTRIBUTION WIDTH 17.6 % (9.4-14.8)
[2020-03-05 04:30] LABS: INTERNATIONAL NORMALIZED RATIO 2.01 (0.93-1.1); PROTHROMBIN TIME 21.2 Seconds (9.6-11.5)
[2020-03-05 04:33] LABS: ANION GAP 8 mmol/L (5-15); CHLORIDE 106 mmol/L (98-107)
[2020-03-05 04:42] LABS: BILIRUBIN,TOTAL 1.5 mg/dL (0.2-1.0); CALCIUM 7.5 mg/dL (8.5-10.1); CREATININE 1.18 mg/dL (0.7-1.3)
[2020-03-05] MEDS: PANTOPRAZOLE 40MG TABLET PO SCH (06:11)
[2020-03-05] MEDS: LINEZOLID PMX 600MG/300ML 300 ML IV SCH ×2 (06:12→17:25)
[2020-03-05 06:25] LABS: MD SCAN
[2020-03-05] MEDS ORDERED: MAGNESIUM SULFATE/D5W 100 ML IV ONE (07:00)
[2020-03-05 07:12] VITALS: BP 127/74
[2020-03-05] MEDS ORDERED: OxyconTIN ER 10 MG TAB.ER ONE (08:49)
[2020-03-05] MEDS: ASPIRIN 81 MG TABLET CHEW PO SCH (08:54)
[2020-03-05] MEDS: MAGNESIUM CHLORIDE 70MG TAB DR PO SCH ×2 (08:55→22:45)
[2020-03-05] MEDS: POTASSIUM CHLORIDE 20 MEQ TAB.ER.PRT PO SCH ×2 (08:55→17:13)
[2020-03-05] MEDS: DOCUSATE 50 MG/5 ML, 10ML UDC PO/NG SCH ×2 (08:55→21:00)
[2020-03-05] MEDS: SODIUM CHLORIDE FLUSH 10ML SYR IVF SCH ×2 (08:56→21:00)
[2020-03-05] MEDS: OxyconTIN ER 15 MG TAB.ER PO SCH ×2 (10:57→22:45)
[2020-03-05] MEDS: DAPTOMYCIN 800 MG in SODIUM CHLORIDE 0.9% 100 ML IVPB SCH (13:29)
[2020-03-05 13:37] VITALS: BP 136/83
[2020-03-05] MEDS: RIFAMPIN 600 MG in SODIUM CHLORIDE 0.9% 100 ML IV SCH (14:43)
[2020-03-05] MEDS ORDERED: WARFARIN 5 MG TABLET PO-COUM ONE (18:00)
[2020-03-05] MEDS: GUAIFENESIN/COD200MG-20MG/10ML LIQUID PO PRN (18:45)
[2020-03-05 21:53] VITALS: BP 130/80
[2020-03-06] MEDS: GUAIFENESIN/COD200MG-20MG/10ML LIQUID PO PRN ×3 (00:54→17:10)
[2020-03-06 01:41] VITALS: BP 135/82
[2020-03-06 04:33] LABS: INTERNATIONAL NORMALIZED RATIO 1.89 (0.93-1.1); PROTHROMBIN TIME 19.9 Seconds (9.6-11.5)
[2020-03-06 04:38] LABS: ALBUMIN 1.3 g/dL (3.4-5.0); ANION GAP 5 mmol/L (5-15); CALCIUM 7.2 mg/dL (8.5-10.1); CHLORIDE 108 mmol/L (98-107)
[2020-03-06 04:43] LABS: BASOPHILS % (AUTO) 1 % (0-1); EOSINOPHILS % (AUTO) 1 % (1-7); LYMPHOCYTES % (AUTO) 10 % (22-44); MEAN CORPUSCULAR HEMOGLOBIN 30.9 pg (27.5-34.5); MEAN CORPUSCULAR HGB CONC 32.9 g/dL (33.2-36.2); MEAN PLATELET VOLUME 8.7 fL (7.4-10.4); MONOCYTES % (AUTO) 12 % (2-9); NEUTROPHILS % (AUTO) 77 % (42-75); PLATELET COUNT 258 x10^3/uL (130-400); RED BLOOD COUNT 2.69 x10^6/uL (4.38-5.82); RED CELL DISTRIBUTION WIDTH 17.2 % (9.4-14.8)
[2020-03-06 04:45] LABS: ALANINE AMINOTRANSFERASE 106 U/L (12-78); ALKALINE PHOSPHATASE 108 U/L (45-117); BILIRUBIN,TOTAL 1.6 mg/dL (0.2-1.0); CREATININE 0.97 mg/dL (0.7-1.3)
[2020-03-06] MEDS: ACETAMINOPHEN 325 MG TABLET PO PRN (05:29)
[2020-03-06] MEDS: LINEZOLID PMX 600MG/300ML 300 ML IV SCH ×2 (05:29→17:11)
[2020-03-06 06:20] LABS: MD SCAN
[2020-03-06] MEDS: PANTOPRAZOLE 40MG TABLET PO SCH (06:43)
[2020-03-06] MEDS: MORPHINE SULFATE 4 MG/ML, 1ML IV PRN ×4 (06:43→20:38)
[2020-03-06 06:58] LABS: HCT (SEDRATE) 24.2 % (39.2-51.8)
[2020-03-06 07:21] VITALS: BP 128/72
[2020-03-06] MEDS: POTASSIUM CHLORIDE 20 MEQ TAB.ER.PRT PO SCH ×2 (08:47→17:11)
[2020-03-06] MEDS: MAGNESIUM CHLORIDE 70MG TAB DR PO SCH ×2 (08:47→20:38)
[2020-03-06] MEDS: SODIUM CHLORIDE FLUSH 10ML SYR IVF SCH ×2 (08:48→20:37)
[2020-03-06] MEDS: ASPIRIN 81 MG TABLET CHEW PO SCH (08:48)
[2020-03-06] MEDS: DOCUSATE 50 MG/5 ML, 10ML UDC PO/NG SCH ×2 (08:48→20:45)
[2020-03-06] MEDS ORDERED: FUROSEMIDE 20 MG/2 ML IV ONE (10:30)
[2020-03-06] MEDS: OxyconTIN ER 15 MG TAB.ER PO SCH ×2 (11:26→22:52)
[2020-03-06 12:25] VITALS: BP 136/81
[2020-03-06] MEDS: DAPTOMYCIN 800 MG in SODIUM CHLORIDE 0.9% 100 ML IVPB SCH (13:04)
[2020-03-06] MEDS: RIFAMPIN 300 MG CAPSULE PO SCH (15:25)
[2020-03-06] MEDS ORDERED: WARFARIN 5 MG TABLET PO-COUM ONE (18:00)
[2020-03-06 20:00] VITALS: BP 119/79
[2020-03-06] MEDS ORDERED: OxyconTIN ER 20 MG TAB.ER ONE (22:37)
[2020-03-07] MEDS: MORPHINE SULFATE 4 MG/ML, 1ML IV PRN ×4 (01:42→18:30)
[2020-03-07 02:00] VITALS: BP 128/81
[2020-03-07] MEDS: LINEZOLID PMX 600MG/300ML 300 ML IV SCH ×2 (05:24→20:06)
[2020-03-07] MEDS: PANTOPRAZOLE 40MG TABLET PO SCH (05:24)
[2020-03-07 08:04] VITALS: BP 132/84
[2020-03-07 08:09] LABS: BASOPHILS % (AUTO) 1 % (0-1); EOSINOPHILS % (AUTO) 1 % (1-7); LYMPHOCYTES % (AUTO) 9 % (22-44); MEAN CORPUSCULAR HEMOGLOBIN 30.1 pg (27.5-34.5); MEAN CORPUSCULAR HGB CONC 33.1 g/dL (33.2-36.2); MEAN PLATELET VOLUME 8.2 fL (7.4-10.4); MONOCYTES % (AUTO) 13 % (2-9); NEUTROPHILS % (AUTO) 77 % (42-75); PLATELET COUNT 355 x10^3/uL (130-400); RED BLOOD COUNT 2.78 x10^6/uL (4.38-5.82); RED CELL DISTRIBUTION WIDTH 16.6 % (9.4-14.8)
[2020-03-07 08:18] LABS: INTERNATIONAL NORMALIZED RATIO 2.18 (0.93-1.1); PROTHROMBIN TIME 22.9 Seconds (9.6-11.5)
[2020-03-07 08:20] LABS: ANION GAP 8 mmol/L (5-15); CALCIUM 7.3 mg/dL (8.5-10.1); CHLORIDE 107 mmol/L (98-107); CREATININE 0.99 mg/dL (0.7-1.3)
[2020-03-07 08:21] LABS: BILIRUBIN,TOTAL 1.7 mg/dL (0.2-1.0)
[2020-03-07] MEDS: POTASSIUM CHLORIDE 20 MEQ TAB.ER.PRT PO SCH ×2 (08:34→18:00)
[2020-03-07] MEDS: ASPIRIN 81 MG TABLET CHEW PO SCH (08:34)
[2020-03-07] MEDS: SODIUM CHLORIDE FLUSH 10ML SYR IVF SCH ×2 (08:34→20:32)
[2020-03-07] MEDS: RIFAMPIN 300 MG CAPSULE PO SCH (08:35)
[2020-03-07] MEDS: MAGNESIUM CHLORIDE 70MG TAB DR PO SCH ×2 (08:35→20:31)
[2020-03-07] MEDS: DOCUSATE 50 MG/5 ML, 10ML UDC PO/NG SCH ×2 (08:35→20:31)
[2020-03-07 08:42] LABS: MD SCAN
[2020-03-07] MEDS ORDERED: MAGNESIUM SULFATE PMX 2GM/50ML 50 ML IV ONE (09:00)
[2020-03-07] MEDS: OxyconTIN ER 15 MG TAB.ER PO SCH ×2 (11:27→22:44)
[2020-03-07] MEDS: PIPERACILLIN/TAZO/PMX 3.375GM 50 ML IV SCH ×2 (11:27→20:06)
[2020-03-07 12:41] VITALS: BP 126/79
[2020-03-07] MEDS ORDERED: WARFARIN 2.5 MG TABLET PO-COUM ONE (18:00)
[2020-03-07] MEDS: DAPTOMYCIN 800 MG in SODIUM CHLORIDE 0.9% 100 ML IVPB SCH (18:00)
[2020-03-07 19:31] VITALS: BP 116/65
[2020-03-07] MEDS: GUAIFENESIN/COD200MG-20MG/10ML LIQUID PO PRN (22:44)
[2020-03-08] VITALS (9 sets, daily range): BP systolic 102–132; BP diastolic 65–80
[2020-03-08] MEDS: MORPHINE SULFATE 4 MG/ML, 1ML IV PRN ×6 (00:20→22:19)
[2020-03-08] MEDS: PIPERACILLIN/TAZO/PMX 3.375GM 50 ML IV SCH ×4 (01:58→21:12)
[2020-03-08] MEDS: ACETAMINOPHEN 325 MG TABLET PO PRN (03:25)
[2020-03-08 04:47] LABS: BASOPHILS % (AUTO) 1 % (0-1); EOSINOPHILS % (AUTO) 1 % (1-7); LYMPHOCYTES % (AUTO) 12 % (22-44); MEAN CORPUSCULAR HEMOGLOBIN 29.9 pg (27.5-34.5); MEAN CORPUSCULAR HGB CONC 32.9 g/dL (33.2-36.2); MEAN PLATELET VOLUME 8.1 fL (7.4-10.4); MONOCYTES % (AUTO) 12 % (2-9); NEUTROPHILS % (AUTO) 75 % (42-75); PLATELET COUNT 379 x10^3/uL (130-400); RED BLOOD COUNT 2.49 x10^6/uL (4.38-5.82); RED CELL DISTRIBUTION WIDTH 16.4 % (9.4-14.8)
[2020-03-08 04:50] LABS: INTERNATIONAL NORMALIZED RATIO 2.69 (0.93-1.1); PROTHROMBIN TIME 28.2 Seconds (9.6-11.5)
[2020-03-08 04:54] LABS: ANION GAP 7 mmol/L (5-15); CALCIUM 7.3 mg/dL (8.5-10.1); CHLORIDE 108 mmol/L (98-107); CREATININE 1.05 mg/dL (0.7-1.3)
[2020-03-08 04:56] LABS: BILIRUBIN,TOTAL 1.3 mg/dL (0.2-1.0)
[2020-03-08] MEDS: GUAIFENESIN/COD200MG-20MG/10ML LIQUID PO PRN ×2 (04:59→11:28)
[2020-03-08] MEDS: PANTOPRAZOLE 40MG TABLET PO SCH (05:40)
[2020-03-08 05:48] LABS: MD SCAN
[2020-03-08] MEDS: MAGNESIUM CHLORIDE 70MG TAB DR PO SCH ×2 (09:15→21:12)
[2020-03-08] MEDS: ASPIRIN 81 MG TABLET CHEW PO SCH (09:15)
[2020-03-08] MEDS: SODIUM CHLORIDE FLUSH 10ML SYR IVF SCH ×2 (09:16→21:12)
[2020-03-08] MEDS: DOCUSATE 50 MG/5 ML, 10ML UDC PO/NG SCH ×2 (09:16→21:13)
[2020-03-08] MEDS: POTASSIUM CHLORIDE 20 MEQ TAB.ER.PRT PO SCH ×2 (09:16→16:14)
[2020-03-08] MEDS: RIFAMPIN 300 MG CAPSULE PO SCH (09:21)
[2020-03-08] MEDS ORDERED: OxyconTIN ER 10 MG TAB.ER ONE (10:53)
[2020-03-08] MEDS: LINEZOLID PMX 600MG/300ML 300 ML IV SCH (11:28)
[2020-03-08] MEDS: OxyconTIN ER 15 MG TAB.ER PO SCH ×2 (11:30→21:12)
[2020-03-08] MEDS ORDERED: POTASSIUM CHLORIDE 20 MEQ TAB.ER.PRT PO ONE (13:30)
[2020-03-08] MEDS ORDERED: FUROSEMIDE 40 MG/4 ML IV ONE ×2 (13:30→16:00)
[2020-03-08] MEDS ORDERED: WARFARIN 2.5 MG TABLET PO-COUM ONE (18:00)
[2020-03-08] MEDS: DAPTOMYCIN 800 MG in SODIUM CHLORIDE 0.9% 100 ML IVPB SCH (18:37)
[2020-03-08] MEDS: LINEZOLID 600 MG TABLET PO SCH (21:12)
[2020-03-09 01:12] VITALS: BP 104/58
[2020-03-09] MEDS: PIPERACILLIN/TAZO/PMX 3.375GM 50 ML IV SCH ×3 (02:52→15:18)
[2020-03-09] MEDS: MORPHINE SULFATE 4 MG/ML, 1ML IV PRN ×4 (02:52→22:48)
[2020-03-09 05:14] LABS: ANION GAP 4 mmol/L (5-15); CALCIUM 7.8 mg/dL (8.5-10.1); CHLORIDE 106 mmol/L (98-107); CREATININE 1.22 mg/dL (0.7-1.3)
[2020-03-09 05:15] LABS: BILIRUBIN,TOTAL 1.1 mg/dL (0.2-1.0)
[2020-03-09 05:18] LABS: BASOPHILS % (AUTO) 1 % (0-1); EOSINOPHILS % (AUTO) 1 % (1-7); LYMPHOCYTES % (AUTO) 15 % (22-44); MEAN CORPUSCULAR HEMOGLOBIN 30.2 pg (27.5-34.5); MEAN CORPUSCULAR HGB CONC 33.4 g/dL (33.2-36.2); MEAN PLATELET VOLUME 7.8 fL (7.4-10.4); MONOCYTES % (AUTO) 15 % (2-9); NEUTROPHILS % (AUTO) 67 % (42-75); PLATELET COUNT 394 x10^3/uL (130-400); RED BLOOD COUNT 2.66 x10^6/uL (4.38-5.82)
[2020-03-09 05:37] LABS: INTERNATIONAL NORMALIZED RATIO 2.55 (0.93-1.1); PROTHROMBIN TIME 26.8 Seconds (9.6-11.5)
[2020-03-09] MEDS: PANTOPRAZOLE 40MG TABLET PO SCH (05:43)
[2020-03-09 05:53] LABS: MD SCAN
[2020-03-09 07:19] VITALS: BP 118/71
[2020-03-09] MEDS ORDERED: MAGNESIUM SULFATE PMX 2GM/50ML 50 ML IV ONE (07:30)
[2020-03-09] MEDS: ASPIRIN 81 MG TABLET CHEW PO SCH (08:27)
[2020-03-09] MEDS: LINEZOLID 600 MG TABLET PO SCH (08:27)
[2020-03-09] MEDS: RIFAMPIN 300 MG CAPSULE PO SCH (08:27)
[2020-03-09] MEDS: MAGNESIUM CHLORIDE 70MG TAB DR PO SCH ×2 (08:28→21:57)
[2020-03-09] MEDS: POTASSIUM CHLORIDE 20 MEQ TAB.ER.PRT PO SCH ×2 (08:28→17:38)
[2020-03-09] MEDS: SODIUM CHLORIDE FLUSH 10ML SYR IVF SCH ×2 (08:40→21:58)
[2020-03-09] MEDS: DOCUSATE 50 MG/5 ML, 10ML UDC PO/NG SCH ×2 (08:40→21:00)
[2020-03-09] MEDS: FUROSEMIDE 20 MG/2 ML IV SCH ×2 (08:40→17:38)
[2020-03-09] MEDS: OxyconTIN ER 15 MG TAB.ER PO SCH ×2 (10:06→21:57)
[2020-03-09 15:26] VITALS: BP 113/73
[2020-03-09] MEDS ORDERED: WARFARIN 3 MG TABLET PO-COUM ONE (18:00)
[2020-03-09] MEDS: GUAIFENESIN/COD200MG-20MG/10ML LIQUID PO PRN (18:22)
[2020-03-09 20:45] VITALS: BP 113/73
[2020-03-10 00:19] VITALS: BP 120/72
[2020-03-10] MEDS: MORPHINE SULFATE 4 MG/ML, 1ML IV PRN ×3 (02:51→21:37)
[2020-03-10] MEDS: PANTOPRAZOLE 40MG TABLET PO SCH (05:33)
[2020-03-10 06:12] LABS: BASOPHILS % (AUTO) 1 % (0-1); EOSINOPHILS % (AUTO) 1 % (1-7); LYMPHOCYTES % (AUTO) 14 % (22-44); MEAN CORPUSCULAR HEMOGLOBIN 29.3 pg (27.5-34.5); MEAN CORPUSCULAR HGB CONC 32.6 g/dL (33.2-36.2); MEAN PLATELET VOLUME 7.6 fL (7.4-10.4); MONOCYTES % (AUTO) 13 % (2-9); NEUTROPHILS % (AUTO) 70 % (42-75); PLATELET COUNT 424 x10^3/uL (130-400); RED BLOOD COUNT 2.88 x10^6/uL (4.38-5.82); RED CELL DISTRIBUTION WIDTH 16.4 % (9.4-14.8)
[2020-03-10 06:19] LABS: INTERNATIONAL NORMALIZED RATIO 2.55 (0.93-1.1); PROTHROMBIN TIME 26.8 Seconds (9.6-11.5)
[2020-03-10 06:23] LABS: CHLORIDE 108 mmol/L (98-107)
[2020-03-10 06:34] LABS: ALANINE AMINOTRANSFERASE 47 U/L (12-78); ALBUMIN 1.4 g/dL (3.4-5.0); ALKALINE PHOSPHATASE 93 U/L (45-117); ANION GAP 6 mmol/L (5-15); BILIRUBIN,TOTAL 1.2 mg/dL (0.2-1.0); CALCIUM 8.1 mg/dL (8.5-10.1); CREATININE 0.95 mg/dL (0.7-1.3); TOTAL PROTEIN 6.9 g/dL (6.4-8.2)
[2020-03-10 06:42] LABS: HCT (SEDRATE) 25.8 % (39.2-51.8)
[2020-03-10 06:49] LABS: MD MORPH REVIEW ONLY
[2020-03-10 06:50] LABS: ANISOCYTOSIS 1+
[2020-03-10 06:51] LABS: <PLATELET ESTIMATE> INCREASED; <PLT MORPHOLOGY> NORMAL PLT MORPH
[2020-03-10 06:57] VITALS: BP 137/81
[2020-03-10] MEDS: SODIUM CHLORIDE FLUSH 10ML SYR IVF SCH ×2 (09:00→21:37)
[2020-03-10] MEDS: DOCUSATE 50 MG/5 ML, 10ML UDC PO/NG SCH ×2 (09:00→21:00)
[2020-03-10] MEDS: ASPIRIN 81 MG TABLET CHEW PO SCH (10:10)
[2020-03-10] MEDS: MAGNESIUM CHLORIDE 70MG TAB DR PO SCH ×2 (10:10→21:36)
[2020-03-10] MEDS: POTASSIUM CHLORIDE 20 MEQ TAB.ER.PRT PO SCH ×2 (10:10→18:04)
[2020-03-10] MEDS: OxyconTIN ER 15 MG TAB.ER PO SCH ×2 (10:11→22:30)
[2020-03-10] MEDS: FUROSEMIDE 20 MG/2 ML IV SCH ×2 (10:11→18:04)
[2020-03-10 13:00] VITALS: BP 111/76
[2020-03-10] MEDS: PIPERACILLIN/TAZO/PMX 3.375GM 50 ML IV SCH ×2 (14:45→21:36)
[2020-03-10] MEDS ORDERED: WARFARIN 3 MG TABLET PO-COUM ONE (18:00)
[2020-03-10] MEDS ORDERED: WARFARIN 2 MG TABLET PO-COUM ONE (18:02)
[2020-03-10] MEDS ORDERED: WARFARIN 1 MG TABLET PO-COUM ONE (18:02)
[2020-03-10 19:26] VITALS: BP 106/64
[2020-03-11 01:10] VITALS: BP 129/81
[2020-03-11] MEDS: PIPERACILLIN/TAZO/PMX 3.375GM 50 ML IV SCH ×4 (02:36→21:06)
[2020-03-11] MEDS: MORPHINE SULFATE 4 MG/ML, 1ML IV PRN ×4 (02:44→23:14)
[2020-03-11 05:02] LABS: BASOPHILS % (AUTO) 1 % (0-1); EOSINOPHILS % (AUTO) 1 % (1-7); LYMPHOCYTES % (AUTO) 14 % (22-44); MEAN CORPUSCULAR HEMOGLOBIN 29.6 pg (27.5-34.5); MEAN CORPUSCULAR HGB CONC 32.9 g/dL (33.2-36.2); MEAN PLATELET VOLUME 7.6 fL (7.4-10.4); MONOCYTES % (AUTO) 11 % (2-9); NEUTROPHILS % (AUTO) 72 % (42-75); PLATELET COUNT 436 x10^3/uL (130-400); RED BLOOD COUNT 2.82 x10^6/uL (4.38-5.82); RED CELL DISTRIBUTION WIDTH 16.2 % (9.4-14.8)
[2020-03-11 05:15] LABS: ANION GAP 6 mmol/L (5-15); CALCIUM 8.2 mg/dL (8.5-10.1); CHLORIDE 108 mmol/L (98-107); CREATININE 0.97 mg/dL (0.7-1.3)
[2020-03-11 05:19] LABS: INTERNATIONAL NORMALIZED RATIO 1.94 (0.93-1.1); PROTHROMBIN TIME 20.4 Seconds (9.6-11.5)
[2020-03-11] MEDS: PANTOPRAZOLE 40MG TABLET PO SCH (05:24)
[2020-03-11 05:29] LABS: MD SCAN
[2020-03-11 07:13] VITALS: BP 134/79
[2020-03-11] MEDS ORDERED: MAGNESIUM SULFATE PMX 2GM/50ML 50 ML IV ONE (07:30)
[2020-03-11] MEDS: POTASSIUM CHLORIDE 20 MEQ TAB.ER.PRT PO SCH ×2 (08:39→16:53)
[2020-03-11] MEDS: ASPIRIN 81 MG TABLET CHEW PO SCH (08:40)
[2020-03-11] MEDS: MAGNESIUM CHLORIDE 70MG TAB DR PO SCH ×2 (08:40→21:06)
[2020-03-11] MEDS: FUROSEMIDE 20 MG/2 ML IV SCH ×2 (08:40→16:52)
[2020-03-11] MEDS: DOCUSATE 50 MG/5 ML, 10ML UDC PO/NG SCH ×2 (08:42→21:06)
[2020-03-11] MEDS: SODIUM CHLORIDE FLUSH 10ML SYR IVF SCH ×2 (08:42→21:06)
[2020-03-11] MEDS: OxyconTIN ER 15 MG TAB.ER PO SCH ×2 (09:33→21:06)
[2020-03-11 13:09] VITALS: BP 128/76
[2020-03-11] MEDS ORDERED: WARFARIN 2 MG TABLET PO-COUM ONE (18:00)
[2020-03-11 19:40] VITALS: BP 123/78
[2020-03-12 01:38] VITALS: BP 133/74
[2020-03-12] MEDS: PIPERACILLIN/TAZO/PMX 3.375GM 50 ML IV SCH ×3 (03:27→21:54)
[2020-03-12] MEDS: MORPHINE SULFATE 4 MG/ML, 1ML IV PRN ×4 (03:27→21:54)
[2020-03-12 05:46] LABS: ALBUMIN 1.5 g/dL (3.4-5.0); CALCIUM 8.1 mg/dL (8.5-10.1); CHLORIDE 105 mmol/L (98-107)
[2020-03-12 05:48] LABS: BASOPHILS % (AUTO) 1 % (0-1); EOSINOPHILS % (AUTO) 1 % (1-7); LYMPHOCYTES % (AUTO) 14 % (22-44); MEAN CORPUSCULAR HEMOGLOBIN 29.8 pg (27.5-34.5); MEAN CORPUSCULAR HGB CONC 32.5 g/dL (33.2-36.2); MEAN PLATELET VOLUME 7.3 fL (7.4-10.4); MONOCYTES % (AUTO) 11 % (2-9); NEUTROPHILS % (AUTO) 72 % (42-75); PLATELET COUNT 429 x10^3/uL (130-400); RED BLOOD COUNT 2.72 x10^6/uL (4.38-5.82); RED CELL DISTRIBUTION WIDTH 15.9 % (9.4-14.8)
[2020-03-12 05:52] LABS: ALANINE AMINOTRANSFERASE 56 U/L (12-78); ALKALINE PHOSPHATASE 97 U/L (45-117); ANION GAP 5 mmol/L (5-15); BILIRUBIN,TOTAL 1.1 mg/dL (0.2-1.0); CREATININE 1.01 mg/dL (0.7-1.3); TOTAL PROTEIN 7.1 g/dL (6.4-8.2)
[2020-03-12 06:10] LABS: INTERNATIONAL NORMALIZED RATIO 1.88 (0.93-1.1); PROTHROMBIN TIME 19.8 Seconds (9.6-11.5)
[2020-03-12] MEDS: PANTOPRAZOLE 40MG TABLET PO SCH (06:12)
[2020-03-12 06:15] LABS: MD SCAN
[2020-03-12] MEDS: DOCUSATE 50 MG/5 ML, 10ML UDC PO/NG SCH ×3 (09:00→21:54)
[2020-03-12] MEDS: SODIUM CHLORIDE FLUSH 10ML SYR IVF SCH ×2 (09:00→21:55)
[2020-03-12] MEDS: POTASSIUM CHLORIDE 20 MEQ TAB.ER.PRT PO SCH ×2 (09:40→16:28)
[2020-03-12] MEDS: ASPIRIN 81 MG TABLET CHEW PO SCH (09:40)
[2020-03-12] MEDS: MAGNESIUM CHLORIDE 70MG TAB DR PO SCH ×2 (09:40→21:54)
[2020-03-12 09:45] VITALS: BP 131/75
[2020-03-12] MEDS: DAPTOMYCIN 800 MG in SODIUM CHLORIDE 0.9% 100 ML IV SCH ×2 (10:00→11:47)
[2020-03-12] MEDS: LINEZOLID PMX 600MG/300ML 300 ML IV SCH ×2 (11:00→22:57)
[2020-03-12] MEDS: OxyconTIN ER 15 MG TAB.ER PO SCH ×2 (11:01→22:57)
[2020-03-12 16:30] VITALS: BP 124/74
[2020-03-12] MEDS ORDERED: WARFARIN 2 MG TABLET PO-COUM ONE (18:00)
[2020-03-12 20:08] VITALS: BP 138/75
[2020-03-13] MEDS: PIPERACILLIN/TAZO/PMX 3.375GM 50 ML IV SCH ×4 (02:11→21:07)
[2020-03-13] MEDS: MORPHINE SULFATE 4 MG/ML, 1ML IV PRN ×5 (02:11→21:06)
[2020-03-13 03:59] VITALS: BP 117/65
[2020-03-13 04:53] LABS: BASOPHILS % (AUTO) 1 % (0-1); EOSINOPHILS % (AUTO) 2 % (1-7); LYMPHOCYTES % (AUTO) 15 % (22-44); MEAN CORPUSCULAR HEMOGLOBIN 29.9 pg (27.5-34.5); MEAN CORPUSCULAR HGB CONC 33.1 g/dL (33.2-36.2); MONOCYTES % (AUTO) 10 % (2-9); NEUTROPHILS % (AUTO) 73 % (42-75); PLATELET COUNT 408 x10^3/uL (130-400); RED BLOOD COUNT 2.68 x10^6/uL (4.38-5.82); RED CELL DISTRIBUTION WIDTH 16.1 % (9.4-14.8)
[2020-03-13 04:54] LABS: MD NO
[2020-03-13 05:06] LABS: ALANINE AMINOTRANSFERASE 58 U/L (12-78); ALBUMIN 1.5 g/dL (3.4-5.0); ANION GAP 6 mmol/L (5-15); CALCIUM 8.2 mg/dL (8.5-10.1); CHLORIDE 109 mmol/L (98-107); CREATININE 0.95 mg/dL (0.7-1.3)
[2020-03-13 05:09] LABS: ALKALINE PHOSPHATASE 103 U/L (45-117); BILIRUBIN,TOTAL 1.1 mg/dL (0.2-1.0); TOTAL PROTEIN 7.1 g/dL (6.4-8.2)
[2020-03-13 05:55] LABS: INTERNATIONAL NORMALIZED RATIO 2.61 (0.93-1.1); PROTHROMBIN TIME 27.4 Seconds (9.6-11.5)
[2020-03-13] MEDS: PANTOPRAZOLE 40MG TABLET PO SCH (06:38)
[2020-03-13 07:05] VITALS: BP 131/81
[2020-03-13] MEDS: DOCUSATE 50 MG/5 ML, 10ML UDC PO/NG SCH ×2 (09:00→21:00)
[2020-03-13] MEDS: ASPIRIN 81 MG TABLET CHEW PO SCH (09:27)
[2020-03-13] MEDS: POTASSIUM CHLORIDE 20 MEQ TAB.ER.PRT PO SCH ×2 (09:27→17:55)
[2020-03-13] MEDS: MAGNESIUM CHLORIDE 70MG TAB DR PO SCH ×2 (09:27→21:06)
[2020-03-13] MEDS: SODIUM CHLORIDE FLUSH 10ML SYR IVF SCH ×2 (09:29→21:07)
[2020-03-13] MEDS: LINEZOLID PMX 600MG/300ML 300 ML IV SCH ×2 (10:18→23:29)
[2020-03-13] MEDS: DAPTOMYCIN 800 MG in SODIUM CHLORIDE 0.9% 100 ML IV SCH (12:58)
[2020-03-13 14:01] VITALS: BP 118/73
[2020-03-13] MEDS ORDERED: WARFARIN 2.5 MG TABLET PO-COUM ONE (18:00)
[2020-03-13 19:52] VITALS: BP 121/80
[2020-03-14 00:51] VITALS: BP 125/79
[2020-03-14] MEDS: MORPHINE SULFATE 4 MG/ML, 1ML IV PRN ×6 (01:18→22:32)
[2020-03-14] MEDS: GUAIFENESIN/COD200MG-20MG/10ML LIQUID PO PRN (01:18)
[2020-03-14] MEDS: PIPERACILLIN/TAZO/PMX 3.375GM 50 ML IV SCH ×4 (04:35→21:12)
[2020-03-14] MEDS: PANTOPRAZOLE 40MG TABLET PO SCH (04:40)
[2020-03-14 04:47] LABS: BASOPHILS % (AUTO) 1 % (0-1); EOSINOPHILS % (AUTO) 2 % (1-7); LYMPHOCYTES % (AUTO) 13 % (22-44); MEAN CORPUSCULAR HEMOGLOBIN 29.2 pg (27.5-34.5); MEAN CORPUSCULAR HGB CONC 32.4 g/dL (33.2-36.2); MEAN PLATELET VOLUME 7.1 fL (7.4-10.4); MONOCYTES % (AUTO) 10 % (2-9); NEUTROPHILS % (AUTO) 74 % (42-75); PLATELET COUNT 422 x10^3/uL (130-400); RED BLOOD COUNT 2.73 x10^6/uL (4.38-5.82); RED CELL DISTRIBUTION WIDTH 16.2 % (9.4-14.8)
[2020-03-14 04:53] LABS: INTERNATIONAL NORMALIZED RATIO 2.92 (0.93-1.1); PROTHROMBIN TIME 30.6 Seconds (9.6-11.5)
[2020-03-14 05:00] LABS: ALANINE AMINOTRANSFERASE 46 U/L (12-78); ALBUMIN 1.6 g/dL (3.4-5.0); ANION GAP 6 mmol/L (5-15); CHLORIDE 105 mmol/L (98-107)
[2020-03-14 05:02] LABS: ALKALINE PHOSPHATASE 105 U/L (45-117); TOTAL PROTEIN 7.3 g/dL (6.4-8.2)
[2020-03-14 05:40] LABS: MD SCAN
[2020-03-14 06:58] VITALS: BP 136/85
[2020-03-14] MEDS: DOCUSATE 50 MG/5 ML, 10ML UDC PO/NG SCH ×2 (09:00→21:00)
[2020-03-14] MEDS: ASPIRIN 81 MG TABLET CHEW PO SCH (09:10)
[2020-03-14] MEDS: POTASSIUM CHLORIDE 20 MEQ TAB.ER.PRT PO SCH ×2 (09:10→18:14)
[2020-03-14] MEDS: MAGNESIUM CHLORIDE 70MG TAB DR PO SCH ×2 (09:11→21:12)
[2020-03-14] MEDS: SODIUM CHLORIDE FLUSH 10ML SYR IVF SCH ×2 (09:12→21:00)
[2020-03-14] MEDS: LINEZOLID PMX 600MG/300ML 300 ML IV SCH ×2 (09:55→22:33)
[2020-03-14] MEDS: DAPTOMYCIN 800 MG in SODIUM CHLORIDE 0.9% 100 ML IV SCH (12:01)
[2020-03-14 14:38] VITALS: BP 129/83
[2020-03-14] MEDS ORDERED: WARFARIN 3 MG TABLET PO-COUM ONE (18:00)
[2020-03-14 19:27] VITALS: BP 127/80
[2020-03-15 00:12] VITALS: BP 129/84
[2020-03-15] MEDS: MORPHINE SULFATE 4 MG/ML, 1ML IV PRN ×2 (03:04→09:20)
[2020-03-15] MEDS: PIPERACILLIN/TAZO/PMX 3.375GM 50 ML IV SCH (03:08)
[2020-03-15] MEDS: PANTOPRAZOLE 40MG TABLET PO SCH (04:38)
[2020-03-15] MEDS: ACETAMINOPHEN 325 MG TABLET PO PRN ×2 (04:54→13:15)
[2020-03-15 05:09] LABS: INTERNATIONAL NORMALIZED RATIO 3.03 (0.93-1.1); PROTHROMBIN TIME 31.8 Seconds (9.6-11.5)
[2020-03-15 06:51] VITALS: BP 124/77
[2020-03-15] MEDS: SODIUM CHLORIDE FLUSH 10ML SYR IVF SCH ×2 (09:00→20:29)
[2020-03-15] MEDS: DOCUSATE 50 MG/5 ML, 10ML UDC PO/NG SCH ×2 (09:00→20:30)
[2020-03-15] MEDS: MAGNESIUM CHLORIDE 70MG TAB DR PO SCH ×2 (09:17→20:29)
[2020-03-15] MEDS: POTASSIUM CHLORIDE 20 MEQ TAB.ER.PRT PO SCH ×2 (09:18→17:05)
[2020-03-15] MEDS: ASPIRIN 81 MG TABLET CHEW PO SCH (09:27)
[2020-03-15] MEDS: LINEZOLID PMX 600MG/300ML 300 ML IV SCH ×2 (10:32→23:01)
[2020-03-15] MEDS: DAPTOMYCIN 800 MG in SODIUM CHLORIDE 0.9% 100 ML IV SCH (12:22)
[2020-03-15 13:00] VITALS: BP 125/85
[2020-03-15] MEDS ORDERED: OXYcodone IR 5MG TABLET ONE (13:12)
[2020-03-15] MEDS ORDERED: ACETAMINOPHEN 325 MG TABLET ONE (13:13)
[2020-03-15] MEDS: OXYcodone IR 5MG TABLET PO PRN ×2 (13:15→20:30)
[2020-03-15] MEDS ORDERED: WARFARIN 2 MG TABLET PO-COUM ONE (18:00)
[2020-03-15 19:47] VITALS: BP 128/74
[2020-03-16] MEDS: OXYcodone IR 5MG TABLET PO PRN ×4 (00:53→21:51)
[2020-03-16] MEDS: GUAIFENESIN/COD200MG-20MG/10ML LIQUID PO PRN ×2 (00:53→21:51)
[2020-03-16 02:09] VITALS: BP 133/70
[2020-03-16] MEDS: PANTOPRAZOLE 40MG TABLET PO SCH (05:36)
[2020-03-16 05:38] LABS: INTERNATIONAL NORMALIZED RATIO 3.69 (0.93-1.1); PROTHROMBIN TIME 38.6 Seconds (9.6-11.5)
[2020-03-16 05:42] LABS: ALANINE AMINOTRANSFERASE 40 U/L (12-78); ALBUMIN 1.7 g/dL (3.4-5.0); ANION GAP 4 mmol/L (5-15); CALCIUM 8.3 mg/dL (8.5-10.1); CHLORIDE 108 mmol/L (98-107); CREATININE 0.99 mg/dL (0.7-1.3)
[2020-03-16 05:50] LABS: ALKALINE PHOSPHATASE 108 U/L (45-117); BILIRUBIN,TOTAL 0.8 mg/dL (0.2-1.0); TOTAL PROTEIN 7.6 g/dL (6.4-8.2)
[2020-03-16 06:04] LABS: BASOPHILS % (AUTO) 1 % (0-1); EOSINOPHILS % (AUTO) 2 % (1-7); LYMPHOCYTES % (AUTO) 15 % (22-44); MEAN CORPUSCULAR HEMOGLOBIN 29.3 pg (27.5-34.5); MEAN CORPUSCULAR HGB CONC 32.5 g/dL (33.2-36.2); MONOCYTES % (AUTO) 9 % (2-9); NEUTROPHILS % (AUTO) 73 % (42-75); PLATELET COUNT 492 x10^3/uL (130-400); RED BLOOD COUNT 2.99 x10^6/uL (4.38-5.82); RED CELL DISTRIBUTION WIDTH 15.7 % (9.4-14.8)
[2020-03-16 06:27] LABS: MD NO
[2020-03-16] MEDS: ACETAMINOPHEN 325 MG TABLET PO PRN ×2 (06:49→21:51)
[2020-03-16] MEDS: DOCUSATE 50 MG/5 ML, 10ML UDC PO/NG SCH ×2 (09:00→21:00)
[2020-03-16] MEDS: MAGNESIUM CHLORIDE 70MG TAB DR PO SCH ×2 (09:06→21:51)
[2020-03-16] MEDS: ASPIRIN 81 MG TABLET CHEW PO SCH (09:06)
[2020-03-16] MEDS: POTASSIUM CHLORIDE 20 MEQ TAB.ER.PRT PO SCH ×2 (09:06→16:29)
[2020-03-16] MEDS: SODIUM CHLORIDE FLUSH 10ML SYR IVF SCH ×2 (09:08→21:57)
[2020-03-16 09:09] VITALS: BP 123/73
[2020-03-16] MEDS: LINEZOLID PMX 600MG/300ML 300 ML IV SCH ×2 (10:24→22:43)
[2020-03-16] MEDS: DAPTOMYCIN 800 MG in SODIUM CHLORIDE 0.9% 100 ML IV SCH (12:04)
[2020-03-16 14:48] VITALS: BP 121/76
[2020-03-16] MEDS ORDERED: HOLD MEDICATION MC ONE (18:00)
[2020-03-16 20:00] VITALS: BP 118/70
[2020-03-17 03:20] VITALS: BP 112/68
[2020-03-17] MEDS: PANTOPRAZOLE 40MG TABLET PO SCH (05:31)
[2020-03-17] MEDS: GUAIFENESIN/COD200MG-20MG/10ML LIQUID PO PRN ×2 (05:31→16:32)
[2020-03-17] MEDS: OXYcodone IR 5MG TABLET PO PRN ×4 (05:32→20:12)
[2020-03-17 05:57] LABS: INTERNATIONAL NORMALIZED RATIO 2.57 (0.93-1.1)
[2020-03-17 08:53] VITALS: BP 115/72
[2020-03-17] MEDS: POTASSIUM CHLORIDE 20 MEQ TAB.ER.PRT PO SCH ×2 (08:58→17:14)
[2020-03-17] MEDS: ASPIRIN 81 MG TABLET CHEW PO SCH (08:58)
[2020-03-17] MEDS: MAGNESIUM CHLORIDE 70MG TAB DR PO SCH ×2 (08:59→20:13)
[2020-03-17] MEDS: DOCUSATE 50 MG/5 ML, 10ML UDC PO/NG SCH ×2 (09:00→20:14)
[2020-03-17] MEDS: SODIUM CHLORIDE FLUSH 10ML SYR IVF SCH ×2 (09:00→20:13)
[2020-03-17] MEDS: LINEZOLID PMX 600MG/300ML 300 ML IV SCH ×2 (09:01→22:13)
[2020-03-17] MEDS: DAPTOMYCIN 800 MG in SODIUM CHLORIDE 0.9% 100 ML IV SCH (12:43)
[2020-03-17] MEDS ORDERED: WARFARIN 2 MG TABLET PO-COUM ONE (18:00)
[2020-03-17 19:30] VITALS: BP 128/70
[2020-03-18] MEDS: OXYcodone IR 5MG TABLET PO PRN ×4 (00:40→21:43)
[2020-03-18] MEDS: GUAIFENESIN/COD200MG-20MG/10ML LIQUID PO PRN ×3 (00:40→21:43)
[2020-03-18 01:19] VITALS: BP 108/68
[2020-03-18] MEDS: PANTOPRAZOLE 40MG TABLET PO SCH (05:30)
[2020-03-18 06:08] LABS: INTERNATIONAL NORMALIZED RATIO 2.08 (0.93-1.1); PROTHROMBIN TIME 21.9 Seconds (9.6-11.5)
[2020-03-18] MEDS: POTASSIUM CHLORIDE 20 MEQ TAB.ER.PRT PO SCH ×2 (07:59→17:18)
[2020-03-18] MEDS: MAGNESIUM CHLORIDE 70MG TAB DR PO SCH ×2 (07:59→21:43)
[2020-03-18] MEDS: ASPIRIN 81 MG TABLET CHEW PO SCH (07:59)
[2020-03-18] MEDS: SODIUM CHLORIDE FLUSH 10ML SYR IVF SCH ×2 (08:00→21:44)
[2020-03-18] MEDS: DOCUSATE 50 MG/5 ML, 10ML UDC PO/NG SCH ×2 (08:01→21:44)
[2020-03-18 08:05] VITALS: BP 114/75
[2020-03-18] MEDS: LINEZOLID PMX 600MG/300ML 300 ML IV SCH ×2 (10:05→21:43)
[2020-03-18] MEDS: DAPTOMYCIN 800 MG in SODIUM CHLORIDE 0.9% 100 ML IV SCH (11:56)
[2020-03-18] MEDS: ACETAMINOPHEN 325 MG TABLET PO PRN ×2 (12:41→17:19)
[2020-03-18 13:30] VITALS: BP 108/62
[2020-03-18] MEDS: CARVEDILOL 6.25 MG TABLET PO SCH (17:18)
[2020-03-18] MEDS ORDERED: WARFARIN 3 MG TABLET PO-COUM ONE (18:00)
[2020-03-18 20:00] VITALS: BP 112/63
[2020-03-19 01:06] VITALS: BP 120/68
[2020-03-19] MEDS: OXYcodone IR 5MG TABLET PO PRN ×4 (02:30→21:22)
[2020-03-19 04:54] LABS: MEAN PLATELET VOLUME 6.6 fL (7.4-10.4)
[2020-03-19 04:56] LABS: BASOPHILS % (AUTO) 1 % (0-1); EOSINOPHILS % (AUTO) 4 % (1-7); LYMPHOCYTES % (AUTO) 14 % (22-44); MEAN CORPUSCULAR HEMOGLOBIN 28.9 pg (27.5-34.5); MEAN CORPUSCULAR HGB CONC 32.7 g/dL (33.2-36.2); MONOCYTES % (AUTO) 11 % (2-9); NEUTROPHILS % (AUTO) 71 % (42-75); PLATELET COUNT 454 x10^3/uL (130-400); RED BLOOD COUNT 2.86 x10^6/uL (4.38-5.82)
[2020-03-19 04:59] LABS: MD NO
[2020-03-19 05:01] LABS: ALBUMIN 1.8 g/dL (3.4-5.0); ANION GAP 7 mmol/L (5-15); CALCIUM 8.5 mg/dL (8.5-10.1); CHLORIDE 106 mmol/L (98-107)
[2020-03-19 05:10] LABS: ALANINE AMINOTRANSFERASE 30 U/L (12-78); ALKALINE PHOSPHATASE 114 U/L (45-117); BILIRUBIN,TOTAL 0.8 mg/dL (0.2-1.0); CREATININE 1.09 mg/dL (0.7-1.3); TOTAL PROTEIN 7.8 g/dL (6.4-8.2)
[2020-03-19 05:30] LABS: HCT (SEDRATE) 25.3 % (39.2-51.8)
[2020-03-19] MEDS: PANTOPRAZOLE 40MG TABLET PO SCH (06:11)
[2020-03-19] MEDS: CARVEDILOL 6.25 MG TABLET PO SCH (06:11)
[2020-03-19] MEDS: GUAIFENESIN/COD200MG-20MG/10ML LIQUID PO PRN ×2 (06:11→11:39)
[2020-03-19 07:26] LABS: INTERNATIONAL NORMALIZED RATIO 2.23 (0.93-1.1); PROTHROMBIN TIME 23.4 Seconds (9.6-11.5)
[2020-03-19] MEDS: DOCUSATE 50 MG/5 ML, 10ML UDC PO/NG SCH ×2 (09:00→20:19)
[2020-03-19] MEDS: ASPIRIN 81 MG TABLET CHEW PO SCH (09:02)
[2020-03-19] MEDS: MAGNESIUM CHLORIDE 70MG TAB DR PO SCH ×2 (09:03→21:20)
[2020-03-19] MEDS: POTASSIUM CHLORIDE 20 MEQ TAB.ER.PRT PO SCH ×2 (09:03→17:06)
[2020-03-19] MEDS: SODIUM CHLORIDE FLUSH 10ML SYR IVF SCH ×2 (09:04→21:20)
[2020-03-19] MEDS: LINEZOLID PMX 600MG/300ML 300 ML IV SCH ×2 (09:15→21:20)
[2020-03-19 09:39] VITALS: BP 99/63
[2020-03-19] MEDS ORDERED: OMNIPAQUE 350 MG/ML, 75ML BOTTLE ONE (11:19)
[2020-03-19] MEDS: DAPTOMYCIN 800 MG in SODIUM CHLORIDE 0.9% 100 ML IV SCH (11:39)
[2020-03-19 15:44] VITALS: BP 113/71
[2020-03-19] MEDS ORDERED: FUROSEMIDE 40 MG/4 ML IV ONE (16:00)
[2020-03-19] MEDS ORDERED: WARFARIN 2 MG TABLET PO-COUM ONE (16:59)
[2020-03-19] MEDS ORDERED: WARFARIN 1 MG TABLET PO-COUM ONE (17:00)
[2020-03-19] MEDS: CARVEDILOL 12.5 MG TABLET PO SCH (17:06)
[2020-03-19] MEDS ORDERED: WARFARIN 3 MG TABLET PO-COUM ONE (18:00)
[2020-03-19 19:06] VITALS: BP 94/58
[2020-03-20 00:13] VITALS: BP 100/65
[2020-03-20] MEDS: OXYcodone IR 5MG TABLET PO PRN ×6 (01:34→21:19)
[2020-03-20 06:29] VITALS: BP 106/64
[2020-03-20] MEDS: PANTOPRAZOLE 40MG TABLET PO SCH (06:31)
[2020-03-20] MEDS: CARVEDILOL 12.5 MG TABLET PO SCH ×2 (06:31→17:03)
[2020-03-20] MEDS: DOCUSATE 50 MG/5 ML, 10ML UDC PO/NG SCH ×2 (09:00→21:00)
[2020-03-20] MEDS: POTASSIUM CHLORIDE 20 MEQ TAB.ER.PRT PO SCH ×2 (09:00→17:04)
[2020-03-20] MEDS: ASPIRIN 81 MG TABLET CHEW PO SCH (09:00)
[2020-03-20] MEDS: MAGNESIUM CHLORIDE 70MG TAB DR PO SCH ×2 (09:00→21:00)
[2020-03-20] MEDS: LINEZOLID PMX 600MG/300ML 300 ML IV SCH ×2 (09:00→21:00)
[2020-03-20] MEDS: SODIUM CHLORIDE FLUSH 10ML SYR IVF SCH ×2 (09:01→21:00)
[2020-03-20] MEDS: GUAIFENESIN/COD200MG-20MG/10ML LIQUID PO PRN ×3 (09:28→22:31)
[2020-03-20] MEDS: DAPTOMYCIN 800 MG in SODIUM CHLORIDE 0.9% 100 ML IV SCH (11:35)
[2020-03-20 11:46] LABS: INTERNATIONAL NORMALIZED RATIO 2.43 (0.93-1.1); PROTHROMBIN TIME 25.5 Seconds (9.6-11.5)
[2020-03-20 14:03] VITALS: BP 93/58
[2020-03-20] MEDS ORDERED: WARFARIN 1 MG TABLET PO-COUM ONE (18:00)
[2020-03-20 20:15] VITALS: BP 94/63
[2020-03-21 00:08] VITALS: BP 109/88
[2020-03-21] MEDS: ACETAMINOPHEN 325 MG TABLET PO PRN ×2 (00:15→22:21)
[2020-03-21] MEDS: OXYcodone IR 5MG TABLET PO PRN ×6 (01:46→22:21)
[2020-03-21 05:19] LABS: INTERNATIONAL NORMALIZED RATIO 2.29 (0.93-1.1); PROTHROMBIN TIME 24.1 Seconds (9.6-11.5)
[2020-03-21] MEDS: CARVEDILOL 12.5 MG TABLET PO SCH ×2 (06:32→16:55)
[2020-03-21] MEDS: PANTOPRAZOLE 40MG TABLET PO SCH (06:32)
[2020-03-21 07:06] VITALS: BP 104/63
[2020-03-21] MEDS: POTASSIUM CHLORIDE 20 MEQ TAB.ER.PRT PO SCH ×2 (08:00→15:39)
[2020-03-21] MEDS: DOCUSATE 50 MG/5 ML, 10ML UDC PO/NG SCH ×2 (09:00→22:14)
[2020-03-21] MEDS: MAGNESIUM CHLORIDE 70MG TAB DR PO SCH ×2 (09:00→22:14)
[2020-03-21] MEDS: SODIUM CHLORIDE FLUSH 10ML SYR IVF SCH ×2 (09:00→21:00)
[2020-03-21] MEDS: ASPIRIN 81 MG TABLET CHEW PO SCH (09:00)
[2020-03-21] MEDS: GUAIFENESIN/COD200MG-20MG/10ML LIQUID PO PRN ×2 (10:34→22:22)
[2020-03-21] MEDS: CEFTAROLINE 600 MG in SODIUM CHLORIDE 0.9% 100 ML IV SCH ×2 (10:40→17:43)
[2020-03-21 13:07] VITALS: BP 106/69
[2020-03-21] MEDS ORDERED: WARFARIN 2 MG TABLET PO-COUM ONE (18:00)
[2020-03-21 20:37] VITALS: BP 110/70
[2020-03-22 01:23] VITALS: BP 98/63
[2020-03-22] MEDS: CEFTAROLINE 600 MG in SODIUM CHLORIDE 0.9% 100 ML IV SCH ×3 (02:47→18:04)
[2020-03-22] MEDS: PANTOPRAZOLE 40MG TABLET PO SCH (05:31)
[2020-03-22] MEDS: OXYcodone IR 5MG TABLET PO PRN ×3 (05:32→18:02)
[2020-03-22] MEDS: CARVEDILOL 12.5 MG TABLET PO SCH ×2 (05:34→17:59)
[2020-03-22 06:53] LABS: INTERNATIONAL NORMALIZED RATIO 2.49 (0.93-1.1); PROTHROMBIN TIME 26.2 Seconds (9.6-11.5)
[2020-03-22 07:39] VITALS: BP 106/63
[2020-03-22] MEDS: POTASSIUM CHLORIDE 20 MEQ TAB.ER.PRT PO SCH ×2 (10:14→18:01)
[2020-03-22] MEDS: DOCUSATE 50 MG/5 ML, 10ML UDC PO/NG SCH ×2 (10:14→20:46)
[2020-03-22] MEDS: ASPIRIN 81 MG TABLET CHEW PO SCH (10:14)
[2020-03-22] MEDS: MAGNESIUM CHLORIDE 70MG TAB DR PO SCH ×2 (10:14→20:46)
[2020-03-22] MEDS: SODIUM CHLORIDE FLUSH 10ML SYR IVF SCH ×2 (10:14→20:46)
[2020-03-22] MEDS ORDERED: CATHFLO-ALTEPLASE 2 MG/2 ML CATHFLUSH ONE (11:00)
[2020-03-22 13:11] VITALS: BP 103/62
[2020-03-22 18:00] VITALS: BP 110/69
[2020-03-22] MEDS ORDERED: WARFARIN 2 MG TABLET PO-COUM ONE (18:00)
[2020-03-22 20:12] VITALS: BP 102/70
[2020-03-23] VITALS (10 sets, daily range): BP systolic 101–125; BP diastolic 61–84
[2020-03-23] MEDS: GUAIFENESIN/COD200MG-20MG/10ML LIQUID PO PRN ×2 (03:40→20:03)
[2020-03-23] MEDS: CEFTAROLINE 600 MG in SODIUM CHLORIDE 0.9% 100 ML IV SCH ×3 (03:41→20:04)
[2020-03-23] MEDS: OXYcodone IR 5MG TABLET PO PRN ×3 (03:41→20:04)
[2020-03-23 04:08] LABS: BASOPHILS % (AUTO) 1 % (0-1); EOSINOPHILS % (AUTO) 9 % (1-7); LYMPHOCYTES % (AUTO) 9 % (22-44); MEAN CORPUSCULAR HEMOGLOBIN 29.7 pg (27.5-34.5); MEAN CORPUSCULAR HGB CONC 33.7 g/dL (33.2-36.2); MEAN PLATELET VOLUME 6.5 fL (7.4-10.4); MONOCYTES % (AUTO) 10 % (2-9); NEUTROPHILS % (AUTO) 71 % (42-75); PLATELET COUNT 341 x10^3/uL (130-400); RED BLOOD COUNT 2.52 x10^6/uL (4.38-5.82); RED CELL DISTRIBUTION WIDTH 15.9 % (9.4-14.8)
[2020-03-23 04:11] LABS: INTERNATIONAL NORMALIZED RATIO 3.1 (0.93-1.1); MD NO; PROTHROMBIN TIME 32.5 Seconds (9.6-11.5)
[2020-03-23 04:14] LABS: ALANINE AMINOTRANSFERASE 24 U/L (12-78); ALBUMIN 1.8 g/dL (3.4-5.0); ANION GAP 4 mmol/L (5-15); CALCIUM 8.7 mg/dL (8.5-10.1); CHLORIDE 107 mmol/L (98-107); CREATININE 1.58 mg/dL (0.7-1.3)
[2020-03-23 04:16] LABS: ALKALINE PHOSPHATASE 99 U/L (45-117); BILIRUBIN,TOTAL 0.6 mg/dL (0.2-1.0); TOTAL PROTEIN 7.6 g/dL (6.4-8.2)
[2020-03-23] MEDS: PANTOPRAZOLE 40MG TABLET PO SCH (05:34)
[2020-03-23] MEDS: CARVEDILOL 12.5 MG TABLET PO SCH ×2 (05:35→17:26)
[2020-03-23] MEDS: ASPIRIN 81 MG TABLET CHEW PO SCH (09:07)
[2020-03-23] MEDS: POTASSIUM CHLORIDE 20 MEQ TAB.ER.PRT PO SCH ×2 (09:07→17:26)
[2020-03-23] MEDS: MAGNESIUM CHLORIDE 70MG TAB DR PO SCH ×2 (09:07→20:03)
[2020-03-23] MEDS: SODIUM CHLORIDE FLUSH 10ML SYR IVF SCH ×2 (09:08→20:04)
[2020-03-23] MEDS: DOCUSATE 50 MG/5 ML, 10ML UDC PO/NG SCH ×2 (09:08→20:07)
[2020-03-23] MEDS ORDERED: FUROSEMIDE 20 MG/2 ML IV ONE (10:00)
[2020-03-23] MEDS ORDERED: CATHFLO-ALTEPLASE 2 MG/2 ML CATHFLUSH ONE (10:00)
[2020-03-23] MEDS ORDERED: WARFARIN 1 MG TABLET PO-COUM ONE (18:00)
[2020-03-24 01:57] VITALS: BP 116/72
[2020-03-24] MEDS: CEFTAROLINE 600 MG in SODIUM CHLORIDE 0.9% 100 ML IV SCH ×3 (03:45→18:36)
[2020-03-24 04:12] LABS: INTERNATIONAL NORMALIZED RATIO 4.07 (0.93-1.1); PROTHROMBIN TIME 42.5 Seconds (9.6-11.5)
[2020-03-24] MEDS: CARVEDILOL 12.5 MG TABLET PO SCH ×2 (05:47→18:36)
[2020-03-24] MEDS: PANTOPRAZOLE 40MG TABLET PO SCH (05:47)
[2020-03-24 08:21] VITALS: BP 114/64
[2020-03-24] MEDS: OXYcodone IR 5MG TABLET PO PRN ×3 (08:34→21:34)
[2020-03-24] MEDS: DOCUSATE 50 MG/5 ML, 10ML UDC PO/NG SCH ×2 (08:34→21:29)
[2020-03-24] MEDS: POTASSIUM CHLORIDE 20 MEQ TAB.ER.PRT PO SCH ×2 (08:35→18:36)
[2020-03-24] MEDS: SODIUM CHLORIDE FLUSH 10ML SYR IVF SCH ×2 (08:35→21:29)
[2020-03-24] MEDS: MAGNESIUM CHLORIDE 70MG TAB DR PO SCH ×2 (08:35→21:29)
[2020-03-24] MEDS: ASPIRIN 81 MG TABLET CHEW PO SCH (08:35)
[2020-03-24 10:43] LABS: BASOPHILS % (AUTO) 1 % (0-1); EOSINOPHILS % (AUTO) 6 % (1-7); LYMPHOCYTES % (AUTO) 5 % (22-44); MEAN CORPUSCULAR HEMOGLOBIN 28.5 pg (27.5-34.5); MEAN PLATELET VOLUME 6.6 fL (7.4-10.4); MONOCYTES % (AUTO) 12 % (2-9); NEUTROPHILS % (AUTO) 76 % (42-75); PLATELET COUNT 320 x10^3/uL (130-400); RED BLOOD COUNT 3.06 x10^6/uL (4.38-5.82); RED CELL DISTRIBUTION WIDTH 16.4 % (9.4-14.8)
[2020-03-24 10:47] LABS: MD NO
[2020-03-24 10:49] LABS: ANION GAP 5 mmol/L (5-15); CHLORIDE 108 mmol/L (98-107); CREATININE 1.34 mg/dL (0.7-1.3)
[2020-03-24 15:00] VITALS: BP 101/61
[2020-03-24 16:56] VITALS: BP 101/61
[2020-03-24 20:13] VITALS: BP 108/64
[2020-03-25] MEDS: OXYcodone IR 5MG TABLET PO PRN ×3 (01:07→17:51)
[2020-03-25 01:44] VITALS: BP 101/63
[2020-03-25] MEDS: CEFTAROLINE 600 MG in SODIUM CHLORIDE 0.9% 100 ML IV SCH ×3 (02:58→19:25)
[2020-03-25 05:04] LABS: INTERNATIONAL NORMALIZED RATIO 4.16 (0.93-1.1); PROTHROMBIN TIME 43.5 Seconds (9.6-11.5)
[2020-03-25] MEDS: PANTOPRAZOLE 40MG TABLET PO SCH (06:17)
[2020-03-25] MEDS: CARVEDILOL 12.5 MG TABLET PO SCH ×2 (06:17→17:48)
[2020-03-25 07:20] VITALS: BP 110/66
[2020-03-25] MEDS: POTASSIUM CHLORIDE 20 MEQ TAB.ER.PRT PO SCH ×2 (08:31→17:48)
[2020-03-25] MEDS: SODIUM CHLORIDE FLUSH 10ML SYR IVF SCH ×2 (08:32→21:11)
[2020-03-25] MEDS: ASPIRIN 81 MG TABLET CHEW PO SCH (08:32)
[2020-03-25] MEDS: MAGNESIUM CHLORIDE 70MG TAB DR PO SCH ×2 (08:32→21:10)
[2020-03-25] MEDS: DOCUSATE 50 MG/5 ML, 10ML UDC PO/NG SCH ×2 (08:35→21:11)
[2020-03-25 13:22] VITALS: BP 103/60
[2020-03-25] MEDS ORDERED: HOLD WARFARIN MC PRN (14:30)
[2020-03-25] MEDS ORDERED: WARFARIN 1 MG TABLET PO-COUM ONE (18:00)
[2020-03-25 19:36] VITALS: BP 101/61
[2020-03-26] MEDS: OXYcodone IR 5MG TABLET PO PRN ×3 (00:42→22:05)
[2020-03-26 00:47] VITALS: BP 102/63
[2020-03-26] MEDS: CEFTAROLINE 600 MG in SODIUM CHLORIDE 0.9% 100 ML IV SCH ×3 (03:44→19:00)
[2020-03-26 04:51] LABS: INTERNATIONAL NORMALIZED RATIO 4.08 (0.93-1.1); PROTHROMBIN TIME 42.6 Seconds (9.6-11.5)
[2020-03-26 04:54] LABS: ANION GAP 5 mmol/L (5-15); CALCIUM 8.7 mg/dL (8.5-10.1); CHLORIDE 110 mmol/L (98-107)
[2020-03-26] MEDS: CARVEDILOL 12.5 MG TABLET PO SCH ×2 (06:12→17:55)
[2020-03-26] MEDS: PANTOPRAZOLE 40MG TABLET PO SCH (06:12)
[2020-03-26 06:36] VITALS: BP 108/71
[2020-03-26 08:34] LABS: ALANINE AMINOTRANSFERASE 24 U/L (12-78); ALBUMIN 1.9 g/dL (3.4-5.0)
[2020-03-26 08:36] LABS: ALKALINE PHOSPHATASE 101 U/L (45-117); BILIRUBIN,TOTAL 0.6 mg/dL (0.2-1.0); TOTAL PROTEIN 7.6 g/dL (6.4-8.2)
[2020-03-26 08:49] LABS: BASOPHILS % (AUTO) 1 % (0-1); EOSINOPHILS % (AUTO) 6 % (1-7); LYMPHOCYTES % (AUTO) 16 % (22-44); MEAN CORPUSCULAR HEMOGLOBIN 28.3 pg (27.5-34.5); MEAN CORPUSCULAR HGB CONC 32.7 g/dL (33.2-36.2); MEAN PLATELET VOLUME 7.2 fL (7.4-10.4); MONOCYTES % (AUTO) 13 % (2-9); NEUTROPHILS % (AUTO) 65 % (42-75); PLATELET COUNT 363 x10^3/uL (130-400); RED BLOOD COUNT 3.14 x10^6/uL (4.38-5.82); RED CELL DISTRIBUTION WIDTH 16.1 % (9.4-14.8)
[2020-03-26 08:51] LABS: MD NO
[2020-03-26] MEDS: DOCUSATE 50 MG/5 ML, 10ML UDC PO/NG SCH ×2 (09:06→20:40)
[2020-03-26] MEDS: GUAIFENESIN/COD200MG-20MG/10ML LIQUID PO PRN (09:06)
[2020-03-26] MEDS: SODIUM CHLORIDE FLUSH 10ML SYR IVF SCH ×2 (09:08→20:40)
[2020-03-26] MEDS: POTASSIUM CHLORIDE 20 MEQ TAB.ER.PRT PO SCH ×2 (09:08→16:26)
[2020-03-26] MEDS: ASPIRIN 81 MG TABLET CHEW PO SCH (09:08)
[2020-03-26] MEDS: MAGNESIUM CHLORIDE 70MG TAB DR PO SCH ×2 (09:08→20:40)
[2020-03-26 12:15] VITALS: BP 106/65
[2020-03-26] MEDS ORDERED: WARFARIN 1 MG TABLET PO-COUM ONE (18:00)
[2020-03-26 21:09] VITALS: BP 116/67
[2020-03-27 02:00] VITALS: BP 108/64
[2020-03-27 03:45] LABS: INTERNATIONAL NORMALIZED RATIO 3.9 (0.93-1.1); PROTHROMBIN TIME 40.8 Seconds (9.6-11.5)
[2020-03-27] MEDS: OXYcodone IR 5MG TABLET PO PRN ×3 (04:18→23:16)
[2020-03-27] MEDS: CEFTAROLINE 600 MG in SODIUM CHLORIDE 0.9% 100 ML IV SCH ×3 (04:18→20:18)
[2020-03-27] MEDS: CARVEDILOL 12.5 MG TABLET PO SCH ×2 (06:03→17:20)
[2020-03-27] MEDS: PANTOPRAZOLE 40MG TABLET PO SCH (06:04)
[2020-03-27 06:40] VITALS: BP 99/61
[2020-03-27] MEDS: DOCUSATE 50 MG/5 ML, 10ML UDC PO/NG SCH ×2 (09:00→20:18)
[2020-03-27] MEDS: ASPIRIN 81 MG TABLET CHEW PO SCH (10:02)
[2020-03-27] MEDS: MAGNESIUM CHLORIDE 70MG TAB DR PO SCH ×2 (10:02→20:18)
[2020-03-27] MEDS: SODIUM CHLORIDE FLUSH 10ML SYR IVF SCH ×2 (10:02→20:18)
[2020-03-27] MEDS: POTASSIUM CHLORIDE 20 MEQ TAB.ER.PRT PO SCH ×2 (10:02→17:20)
[2020-03-27] MEDS ORDERED: MAGNESIUM SULFATE PMX 2GM/50ML 50 ML IV ONE (12:00)
[2020-03-27 13:00] VITALS: BP 106/67
[2020-03-27 17:18] VITALS: BP 112/69
[2020-03-27] MEDS ORDERED: WARFARIN 1 MG TABLET PO-COUM ONE (18:00)
[2020-03-27 20:21] VITALS: BP 105/66
[2020-03-28 04:00] VITALS: BP 112/66
[2020-03-28] MEDS: CEFTAROLINE 600 MG in SODIUM CHLORIDE 0.9% 100 ML IV SCH ×3 (04:29→21:02)
[2020-03-28] MEDS: CARVEDILOL 12.5 MG TABLET PO SCH ×2 (04:57→17:05)
[2020-03-28] MEDS: OXYcodone IR 5MG TABLET PO PRN ×3 (04:57→17:05)
[2020-03-28] MEDS: PANTOPRAZOLE 40MG TABLET PO SCH (04:58)
[2020-03-28 05:21] LABS: BASOPHILS % (AUTO) 1 % (0-1); EOSINOPHILS % (AUTO) 5 % (1-7); LYMPHOCYTES % (AUTO) 18 % (22-44); MEAN CORPUSCULAR HEMOGLOBIN 28.5 pg (27.5-34.5); MEAN CORPUSCULAR HGB CONC 32.7 g/dL (33.2-36.2); MEAN PLATELET VOLUME 7.1 fL (7.4-10.4); MONOCYTES % (AUTO) 11 % (2-9); NEUTROPHILS % (AUTO) 66 % (42-75); PLATELET COUNT 413 x10^3/uL (130-400); RED BLOOD COUNT 3.18 x10^6/uL (4.38-5.82); RED CELL DISTRIBUTION WIDTH 16.4 % (9.4-14.8)
[2020-03-28 05:23] LABS: INTERNATIONAL NORMALIZED RATIO 2.66 (0.93-1.1); PROTHROMBIN TIME 27.9 Seconds (9.6-11.5)
[2020-03-28 05:26] LABS: ANION GAP 7 mmol/L (5-15); CALCIUM 9.1 mg/dL (8.5-10.1); CHLORIDE 110 mmol/L (98-107); CREATININE 1.39 mg/dL (0.7-1.3); MD NO
[2020-03-28 06:36] VITALS: BP 110/65
[2020-03-28] MEDS: MAGNESIUM CHLORIDE 70MG TAB DR PO SCH ×2 (09:04→21:02)
[2020-03-28] MEDS: ASPIRIN 81 MG TABLET CHEW PO SCH (09:05)
[2020-03-28] MEDS: SODIUM CHLORIDE FLUSH 10ML SYR IVF SCH ×2 (09:05→21:00)
[2020-03-28] MEDS: DOCUSATE 50 MG/5 ML, 10ML UDC PO/NG SCH ×2 (09:05→21:00)
[2020-03-28] MEDS: POTASSIUM CHLORIDE 20 MEQ TAB.ER.PRT PO SCH ×2 (09:05→17:05)
[2020-03-28 13:47] VITALS: BP 94/55
--- NOTE | 2020-03-28 15:21 | NUR ---
Green sheet issued Goals for daily nursing assist with activity up for meals 3x/day walk 3x/day sit to stand 5x for leg strengthening and decrease use of UE Addendum: 03/28/20 at 1522 by Samia Burton PT Amended: Links added.
[2020-03-28] MEDS ORDERED: WARFARIN 1 MG TABLET PO-COUM ONE (18:00)
[2020-03-28 19:56] VITALS: BP 102/62
[2020-03-29 01:29] VITALS: BP 105/61
[2020-03-29] MEDS: CARVEDILOL 12.5 MG TABLET PO SCH ×2 (05:01→18:13)
[2020-03-29] MEDS: OXYcodone IR 5MG TABLET PO PRN ×3 (05:01→22:39)
[2020-03-29] MEDS: PANTOPRAZOLE 40MG TABLET PO SCH (05:01)
[2020-03-29] MEDS: CEFTAROLINE 600 MG in SODIUM CHLORIDE 0.9% 100 ML IV SCH ×2 (05:02→18:13)
[2020-03-29 05:32] LABS: INTERNATIONAL NORMALIZED RATIO 2.69 (0.93-1.1); PROTHROMBIN TIME 28.2 Seconds (9.6-11.5)
[2020-03-29 08:10] VITALS: BP 99/60
[2020-03-29] MEDS: DOCUSATE 50 MG/5 ML, 10ML UDC PO/NG SCH ×2 (09:00→20:14)
[2020-03-29] MEDS: SODIUM CHLORIDE FLUSH 10ML SYR IVF SCH ×2 (10:06→20:14)
[2020-03-29] MEDS: POTASSIUM CHLORIDE 20 MEQ TAB.ER.PRT PO SCH ×2 (10:07→18:12)
[2020-03-29] MEDS: MAGNESIUM CHLORIDE 70MG TAB DR PO SCH ×2 (10:07→20:13)
[2020-03-29] MEDS: ASPIRIN 81 MG TABLET CHEW PO SCH (10:07)
[2020-03-29 13:48] VITALS: BP 93/57
[2020-03-29] MEDS ORDERED: WARFARIN 1 MG TABLET PO-COUM ONE (18:00)
[2020-03-29 20:11] VITALS: BP 93/60
[2020-03-30 01:11] VITALS: BP 108/62
[2020-03-30] MEDS: CEFTAROLINE 600 MG in SODIUM CHLORIDE 0.9% 100 ML IV SCH ×3 (01:55→17:18)
[2020-03-30 04:59] VITALS: BP 100/59
[2020-03-30] MEDS: CARVEDILOL 12.5 MG TABLET PO SCH (05:13)
[2020-03-30] MEDS: PANTOPRAZOLE 40MG TABLET PO SCH (05:13)
[2020-03-30] MEDS: OXYcodone IR 5MG TABLET PO PRN ×3 (05:20→21:49)
[2020-03-30 05:34] LABS: INTERNATIONAL NORMALIZED RATIO 2.55 (0.93-1.1); PROTHROMBIN TIME 26.8 Seconds (9.6-11.5)
[2020-03-30 07:05] VITALS: BP 91/52
[2020-03-30] MEDS: DOCUSATE 50 MG/5 ML, 10ML UDC PO/NG SCH ×2 (09:00→21:00)
[2020-03-30] MEDS: MAGNESIUM CHLORIDE 70MG TAB DR PO SCH ×2 (09:10→21:49)
[2020-03-30] MEDS: ASPIRIN 81 MG TABLET CHEW PO SCH (09:11)
[2020-03-30] MEDS: POTASSIUM CHLORIDE 20 MEQ TAB.ER.PRT PO SCH ×2 (09:11→17:18)
[2020-03-30] MEDS: SODIUM CHLORIDE FLUSH 10ML SYR IVF SCH ×2 (09:13→21:00)
[2020-03-30 13:21] VITALS: BP 96/59
[2020-03-30 17:23] VITALS: BP 102/62
[2020-03-30] MEDS: CARVEDILOL 6.25 MG TABLET PO SCH (17:23)
[2020-03-30] MEDS ORDERED: WARFARIN 1 MG TABLET PO-COUM ONE (18:00)
[2020-03-30 19:10] VITALS: BP 105/56
[2020-03-31] MEDS: CEFTAROLINE 600 MG in SODIUM CHLORIDE 0.9% 100 ML IV SCH ×3 (00:56→17:32)
[2020-03-31 01:17] VITALS: BP 102/66
[2020-03-31 05:09] LABS: INTERNATIONAL NORMALIZED RATIO 2.36 (0.93-1.1); PROTHROMBIN TIME 24.8 Seconds (9.6-11.5)
[2020-03-31 05:47] VITALS: BP 96/60
[2020-03-31] MEDS: CARVEDILOL 6.25 MG TABLET PO SCH (05:50)
[2020-03-31] MEDS: PANTOPRAZOLE 40MG TABLET PO SCH (05:50)
[2020-03-31] MEDS: OXYcodone IR 5MG TABLET PO PRN ×3 (05:51→21:02)
[2020-03-31 08:16] VITALS: BP 95/57
[2020-03-31] MEDS: DOCUSATE 50 MG/5 ML, 10ML UDC PO/NG SCH ×2 (09:00→20:35)
[2020-03-31] MEDS: ASPIRIN 81 MG TABLET CHEW PO SCH (09:01)
[2020-03-31] MEDS: MAGNESIUM CHLORIDE 70MG TAB DR PO SCH ×2 (09:01→20:35)
[2020-03-31] MEDS: POTASSIUM CHLORIDE 20 MEQ TAB.ER.PRT PO SCH (09:01)
[2020-03-31] MEDS: SODIUM CHLORIDE FLUSH 10ML SYR IVF SCH ×2 (09:02→20:36)
[2020-03-31 13:01] LABS: ANION GAP 7 mmol/L (5-15); CALCIUM 8.9 mg/dL (8.5-10.1); CHLORIDE 109 mmol/L (98-107); CREATININE 1.42 mg/dL (0.7-1.3)
[2020-03-31 15:59] VITALS: BP 110/65
[2020-03-31 17:33] VITALS: BP 96/56
[2020-03-31] MEDS: CARVEDILOL 3.125 MG TABLET PO SCH (17:34)
[2020-03-31] MEDS ORDERED: WARFARIN 3 MG TABLET PO-COUM ONE (18:00)
[2020-03-31 19:30] VITALS: BP 99/60
[2020-04-01 01:30] VITALS: BP 104/64
[2020-04-01] MEDS: CEFTAROLINE 600 MG in SODIUM CHLORIDE 0.9% 100 ML IV SCH ×3 (01:51→17:54)
[2020-04-01 05:24] VITALS: BP 104/57
[2020-04-01] MEDS: CARVEDILOL 3.125 MG TABLET PO SCH ×2 (05:25→17:54)
[2020-04-01] MEDS: OXYcodone IR 5MG TABLET PO PRN ×3 (05:26→22:40)
[2020-04-01] MEDS: PANTOPRAZOLE 40MG TABLET PO SCH (05:26)
[2020-04-01 05:38] LABS: BASOPHILS % (AUTO) 3 % (0-1); EOSINOPHILS % (AUTO) 4 % (1-7); LYMPHOCYTES % (AUTO) 16 % (22-44); MEAN CORPUSCULAR HEMOGLOBIN 28.2 pg (27.5-34.5); MEAN CORPUSCULAR HGB CONC 32.8 g/dL (33.2-36.2); MEAN PLATELET VOLUME 7.3 fL (7.4-10.4); MONOCYTES % (AUTO) 13 % (2-9); NEUTROPHILS % (AUTO) 64 % (42-75); PLATELET COUNT 448 x10^3/uL (130-400); RED BLOOD COUNT 3.14 x10^6/uL (4.38-5.82); RED CELL DISTRIBUTION WIDTH 16.2 % (9.4-14.8)
[2020-04-01 05:39] LABS: MD NO
[2020-04-01 05:48] LABS: ANION GAP 5 mmol/L (5-15); CALCIUM 9.3 mg/dL (8.5-10.1); CHLORIDE 107 mmol/L (98-107); INTERNATIONAL NORMALIZED RATIO 2.7 (0.93-1.1); PROTHROMBIN TIME 28.3 Seconds (9.6-11.5)
[2020-04-01 05:49] LABS: CREATININE 1.47 mg/dL (0.7-1.3)
[2020-04-01] MEDS: DOCUSATE 50 MG/5 ML, 10ML UDC PO/NG SCH ×2 (08:51→21:00)
[2020-04-01] MEDS: SODIUM CHLORIDE FLUSH 10ML SYR IVF SCH ×2 (08:52→22:40)
[2020-04-01] MEDS: ASPIRIN 81 MG TABLET CHEW PO SCH (08:52)
[2020-04-01] MEDS: MAGNESIUM CHLORIDE 70MG TAB DR PO SCH ×2 (08:52→22:40)
[2020-04-01 08:59] VITALS: BP 96/61
[2020-04-01 14:23] VITALS: BP 95/56
[2020-04-01 17:58] VITALS: BP 104/63
[2020-04-01] MEDS ORDERED: WARFARIN 1 MG TABLET PO-COUM ONE (18:00)
[2020-04-01 19:28] VITALS: BP 97/56
[2020-04-02 01:04] VITALS: BP 102/58
[2020-04-02] MEDS: CEFTAROLINE 600 MG in SODIUM CHLORIDE 0.9% 100 ML IV SCH ×3 (01:25→17:33)
[2020-04-02] MEDS: PANTOPRAZOLE 40MG TABLET PO SCH (05:14)
[2020-04-02] MEDS: OXYcodone IR 5MG TABLET PO PRN ×4 (05:15→21:13)
[2020-04-02] MEDS: CARVEDILOL 3.125 MG TABLET PO SCH ×2 (05:15→17:35)
[2020-04-02 05:16] VITALS: BP 92/50
[2020-04-02 05:51] LABS: INTERNATIONAL NORMALIZED RATIO 3.25 (0.93-1.1); PROTHROMBIN TIME 34.1 Seconds (9.6-11.5)
[2020-04-02 07:19] VITALS: BP 94/54
[2020-04-02] MEDS: DOCUSATE 50 MG/5 ML, 10ML UDC PO/NG SCH ×2 (09:39→21:16)
[2020-04-02] MEDS: ASPIRIN 81 MG TABLET CHEW PO SCH (09:39)
[2020-04-02] MEDS: MAGNESIUM CHLORIDE 70MG TAB DR PO SCH ×2 (09:40→21:12)
[2020-04-02] MEDS: SODIUM CHLORIDE FLUSH 10ML SYR IVF SCH ×2 (09:40→21:12)
[2020-04-02 09:55] LABS: BASOPHILS % (AUTO) 0 % (0-1); EOSINOPHILS % (AUTO) 6 % (1-7); LYMPHOCYTES % (AUTO) 16 % (22-44); MEAN CORPUSCULAR HEMOGLOBIN 28.8 pg (27.5-34.5); MEAN CORPUSCULAR HGB CONC 33.2 g/dL (33.2-36.2); MEAN PLATELET VOLUME 7.3 fL (7.4-10.4); MONOCYTES % (AUTO) 14 % (2-9); NEUTROPHILS % (AUTO) 63 % (42-75); PLATELET COUNT 400 x10^3/uL (130-400); RED BLOOD COUNT 3.03 x10^6/uL (4.38-5.82)
[2020-04-02 10:00] LABS: ANION GAP 8 mmol/L (5-15); CALCIUM 9.5 mg/dL (8.5-10.1); CHLORIDE 109 mmol/L (98-107); CREATININE 1.43 mg/dL (0.7-1.3)
[2020-04-02 10:04] LABS: MD NO
[2020-04-02 15:46] VITALS: BP 101/56
[2020-04-02] MEDS ORDERED: WARFARIN 1 MG TABLET PO-COUM ONE (18:00)
[2020-04-02 20:06] VITALS: BP 114/68
[2020-04-03 01:14] VITALS: BP 98/57
[2020-04-03] MEDS: CEFTAROLINE 600 MG in SODIUM CHLORIDE 0.9% 100 ML IV SCH ×3 (02:08→17:50)
[2020-04-03 05:42] VITALS: BP 105/59
[2020-04-03] MEDS: CARVEDILOL 3.125 MG TABLET PO SCH ×2 (05:43→17:52)
[2020-04-03] MEDS: PANTOPRAZOLE 40MG TABLET PO SCH (05:43)
[2020-04-03] MEDS: OXYcodone IR 5MG TABLET PO PRN ×3 (05:44→17:50)
[2020-04-03 06:47] VITALS: BP 96/58
[2020-04-03] MEDS: MAGNESIUM CHLORIDE 70MG TAB DR PO SCH ×2 (07:41→21:15)
[2020-04-03] MEDS: DOCUSATE 50 MG/5 ML, 10ML UDC PO/NG SCH ×2 (07:41→21:15)
[2020-04-03] MEDS: ASPIRIN 81 MG TABLET CHEW PO SCH (07:41)
[2020-04-03 07:51] LABS: HCT (SEDRATE) 26.2 % (39.2-51.8)
[2020-04-03 07:53] LABS: MEAN CORPUSCULAR HEMOGLOBIN 28.2 pg (27.5-34.5); MEAN CORPUSCULAR HGB CONC 32.6 g/dL (33.2-36.2); MEAN PLATELET VOLUME 7.3 fL (7.4-10.4); PLATELET COUNT 423 x10^3/uL (130-400); RED BLOOD COUNT 3.03 x10^6/uL (4.38-5.82); RED CELL DISTRIBUTION WIDTH 16.4 % (9.4-14.8)
[2020-04-03 07:55] LABS: INTERNATIONAL NORMALIZED RATIO 2.8 (0.93-1.1); PROTHROMBIN TIME 29.4 Seconds (9.6-11.5)
[2020-04-03 07:57] LABS: ALANINE AMINOTRANSFERASE 14 U/L (12-78); ALBUMIN 2.3 g/dL (3.4-5.0); ANION GAP 7 mmol/L (5-15); CALCIUM 9.4 mg/dL (8.5-10.1); CHLORIDE 109 mmol/L (98-107); CREATININE 1.56 mg/dL (0.7-1.3)
[2020-04-03 08:05] LABS: ALKALINE PHOSPHATASE 110 U/L (45-117); BILIRUBIN,TOTAL 0.5 mg/dL (0.2-1.0); TOTAL PROTEIN 8.2 g/dL (6.4-8.2)
[2020-04-03] MEDS ORDERED: CATHFLO-ALTEPLASE 2 MG/2 ML CATHFLUSH ONE (10:00)
[2020-04-03 11:05] LABS: MD YES
[2020-04-03 11:06] LABS: ANISOCYTOSIS 1+; BAND#(MANUAL) 0.08 x10^3/uL; BANDS%(MANUAL) 1 % (0-7); BASOS#(MANUAL) 0.16 x10^3/uL (0-0.1); BASOS% (MANUAL) 2 % (0-1); EOS#(MANUAL) 0.64 x10^3/uL (0.0-0.4); EOS% (MANUAL) 8 % (1-7); LYMPH#(MANUAL) 1.36 x10^3/uL (1-3.4); LYMPHS% (MANUAL) 17 % (22-44); MONOS% (MANUAL) 5 % (2-9); SEG#(MANUAL) 5.36 x10^3/uL (1.8-6.8); SEGS% (MANUAL) 67 % (42-75)
[2020-04-03 11:07] LABS: <PLATELET ESTIMATE> INCREASED; <PLT MORPHOLOGY> NORMAL PLT MORPH; HYPOCHROMIA 1+
[2020-04-03 14:36] VITALS: BP 102/62
[2020-04-03] MEDS ORDERED: WARFARIN 1 MG TABLET PO-COUM ONE (18:00)
[2020-04-03 18:31] VITALS: BP 107/62
[2020-04-04] MEDS: CEFTAROLINE 600 MG in SODIUM CHLORIDE 0.9% 100 ML IV SCH ×3 (01:05→17:29)
[2020-04-04 01:17] VITALS: BP 106/63
[2020-04-04] MEDS: OXYcodone IR 5MG TABLET PO PRN ×3 (03:30→14:08)
[2020-04-04 04:57] LABS: INTERNATIONAL NORMALIZED RATIO 2.63 (0.93-1.1); PROTHROMBIN TIME 27.6 Seconds (9.6-11.5)
[2020-04-04] MEDS: CARVEDILOL 3.125 MG TABLET PO SCH ×2 (05:52→17:29)
[2020-04-04] MEDS: PANTOPRAZOLE 40MG TABLET PO SCH (05:52)
[2020-04-04 07:33] VITALS: BP 93/56
[2020-04-04] MEDS: DOCUSATE 50 MG/5 ML, 10ML UDC PO/NG SCH ×2 (08:23→21:00)
[2020-04-04] MEDS: MAGNESIUM CHLORIDE 70MG TAB DR PO SCH ×2 (08:24→21:31)
[2020-04-04] MEDS: ASPIRIN 81 MG TABLET CHEW PO SCH (08:24)
[2020-04-04 12:54] VITALS: BP 103/58
[2020-04-04] MEDS ORDERED: WARFARIN 1 MG TABLET PO-COUM ONE (18:00)
[2020-04-04 20:08] VITALS: BP 92/54
[2020-04-05 00:46] VITALS: BP 115/62
[2020-04-05] MEDS: CEFTAROLINE 600 MG in SODIUM CHLORIDE 0.9% 100 ML IV SCH ×3 (02:04→17:39)
[2020-04-05 05:07] VITALS: BP 101/61
[2020-04-05] MEDS: CARVEDILOL 3.125 MG TABLET PO SCH ×2 (05:08→17:40)
[2020-04-05] MEDS: OXYcodone IR 5MG TABLET PO PRN ×3 (05:14→22:17)
[2020-04-05] MEDS: PANTOPRAZOLE 40MG TABLET PO SCH (05:14)
[2020-04-05 05:47] LABS: INTERNATIONAL NORMALIZED RATIO 2.81 (0.93-1.1); PROTHROMBIN TIME 29.5 Seconds (9.6-11.5)
[2020-04-05 08:22] VITALS: BP 106/63
[2020-04-05] MEDS: DOCUSATE 50 MG/5 ML, 10ML UDC PO/NG SCH ×2 (09:00→21:00)
[2020-04-05] MEDS: MAGNESIUM CHLORIDE 70MG TAB DR PO SCH ×2 (09:01→21:02)
[2020-04-05] MEDS: ASPIRIN 81 MG TABLET CHEW PO SCH (09:01)
[2020-04-05 09:06] LABS: CHLORIDE,URINE RANDOM 78 mmol/L; POTASSIUM,URINE RANDOM 17 mmol/L; SODIUM,URINE RANDOM 67 mmol/L
[2020-04-05] MEDS: ACETAMINOPHEN 325 MG TABLET PO PRN (09:08)
[2020-04-05 11:22] LABS: BASOPHILS % (AUTO) 1 % (0-1); EOSINOPHILS % (AUTO) 6 % (1-7); LYMPHOCYTES % (AUTO) 14 % (22-44); MEAN CORPUSCULAR HEMOGLOBIN 28.6 pg (27.5-34.5); MEAN CORPUSCULAR HGB CONC 32.9 g/dL (33.2-36.2); MEAN PLATELET VOLUME 7.4 fL (7.4-10.4); MONOCYTES % (AUTO) 11 % (2-9); NEUTROPHILS % (AUTO) 67 % (42-75); PLATELET COUNT 388 x10^3/uL (130-400); RED BLOOD COUNT 3.09 x10^6/uL (4.38-5.82); RED CELL DISTRIBUTION WIDTH 15.9 % (9.4-14.8)
[2020-04-05 11:23] LABS: MD NO
[2020-04-05 11:34] LABS: ALANINE AMINOTRANSFERASE 17 U/L (12-78); ALBUMIN 2.4 g/dL (3.4-5.0); ANION GAP 8 mmol/L (5-15); CALCIUM 9.2 mg/dL (8.5-10.1); CHLORIDE 111 mmol/L (98-107)
[2020-04-05 11:36] LABS: ALKALINE PHOSPHATASE 110 U/L (45-117); BILIRUBIN,TOTAL 0.5 mg/dL (0.2-1.0); CREATININE 1.55 mg/dL (0.7-1.3)
[2020-04-05 13:26] VITALS: BP 107/63
[2020-04-05 17:38] VITALS: BP 100/60
[2020-04-05] MEDS ORDERED: WARFARIN 1 MG TABLET PO-COUM ONE (18:00)
[2020-04-05 21:02] VITALS: BP 122/69
[2020-04-06] MEDS: CEFTAROLINE 600 MG in SODIUM CHLORIDE 0.9% 100 ML IV SCH ×3 (01:59→21:22)
[2020-04-06 02:01] VITALS: BP 122/70
[2020-04-06 05:32] VITALS: BP 101/59
[2020-04-06] MEDS: PANTOPRAZOLE 40MG TABLET PO SCH (05:32)
[2020-04-06] MEDS: CARVEDILOL 3.125 MG TABLET PO SCH ×2 (05:32→17:35)
[2020-04-06 06:02] LABS: INTERNATIONAL NORMALIZED RATIO 3.06 (0.93-1.1); PROTHROMBIN TIME 32.1 Seconds (9.6-11.5)
[2020-04-06] MEDS: OXYcodone IR 5MG TABLET PO PRN ×3 (06:02→19:20)
[2020-04-06 07:04] VITALS: BP 114/73
[2020-04-06] MEDS: DOCUSATE 50 MG/5 ML, 10ML UDC PO/NG SCH ×2 (09:00→21:00)
[2020-04-06] MEDS: MAGNESIUM CHLORIDE 70MG TAB DR PO SCH ×2 (09:46→21:21)
[2020-04-06] MEDS: ASPIRIN 81 MG TABLET CHEW PO SCH (09:46)
[2020-04-06 12:22] LABS: ANION GAP 7 mmol/L (5-15); CALCIUM 9.5 mg/dL (8.5-10.1); CHLORIDE 112 mmol/L (98-107)
[2020-04-06 12:46] VITALS: BP 96/55
[2020-04-06] MEDS ORDERED: OMNIPAQUE 350 MG/ML, 75ML BOTTLE ONE (16:19)
[2020-04-06] MEDS ORDERED: WARFARIN 1 MG TABLET PO-COUM ONE (18:00)
[2020-04-06 19:16] VITALS: BP 97/58
[2020-04-07 02:35] VITALS: BP 108/64
[2020-04-07] MEDS: ACETAMINOPHEN 325 MG TABLET PO PRN ×3 (03:18→17:55)
[2020-04-07] MEDS: PANTOPRAZOLE 40MG TABLET PO SCH (05:45)
[2020-04-07] MEDS: CARVEDILOL 3.125 MG TABLET PO SCH ×2 (05:45→17:50)
[2020-04-07 06:16] LABS: INTERNATIONAL NORMALIZED RATIO 2.61 (0.93-1.1); PROTHROMBIN TIME 27.4 Seconds (9.6-11.5)
[2020-04-07 07:32] VITALS: BP 99/61
[2020-04-07] MEDS: CEFTAROLINE 600 MG in SODIUM CHLORIDE 0.9% 100 ML IV SCH ×2 (08:45→21:03)
[2020-04-07] MEDS: MAGNESIUM CHLORIDE 70MG TAB DR PO SCH ×2 (08:45→21:03)
[2020-04-07] MEDS: ASPIRIN 81 MG TABLET CHEW PO SCH (08:45)
[2020-04-07] MEDS: DOCUSATE 50 MG/5 ML, 10ML UDC PO/NG SCH ×2 (08:46→20:47)
[2020-04-07 12:55] VITALS: BP 101/56
[2020-04-07 17:49] VITALS: BP 129/78
[2020-04-07] MEDS ORDERED: WARFARIN 1 MG TABLET PO-COUM ONE (18:00)
[2020-04-07 20:00] VITALS: BP 118/69
[2020-04-07] MEDS: OXYcodone IR 5MG TABLET PO PRN (21:03)
[2020-04-08 02:00] VITALS: BP 116/82
[2020-04-08 04:40] LABS: INTERNATIONAL NORMALIZED RATIO 2.8 (0.93-1.1); PROTHROMBIN TIME 29.4 Seconds (9.6-11.5)
[2020-04-08] MEDS: CARVEDILOL 3.125 MG TABLET PO SCH ×2 (06:00→17:50)
[2020-04-08 06:47] VITALS: BP 110/67
[2020-04-08] MEDS: ACETAMINOPHEN 325 MG TABLET PO PRN ×3 (06:51→21:08)
[2020-04-08] MEDS: PANTOPRAZOLE 40MG TABLET PO SCH (06:51)
[2020-04-08] MEDS: DOCUSATE 50 MG/5 ML, 10ML UDC PO/NG SCH (09:00)
[2020-04-08] MEDS: MAGNESIUM CHLORIDE 70MG TAB DR PO SCH ×2 (09:29→20:31)
[2020-04-08] MEDS: ASPIRIN 81 MG TABLET CHEW PO SCH (09:29)
[2020-04-08] MEDS: CEFTAROLINE 600 MG in SODIUM CHLORIDE 0.9% 100 ML IV SCH ×2 (09:29→21:08)
[2020-04-08 10:43] LABS: ANION GAP 5 mmol/L (5-15); CALCIUM 9.4 mg/dL (8.5-10.1); CHLORIDE 112 mmol/L (98-107); CREATININE 1.39 mg/dL (0.7-1.3)
[2020-04-08] MEDS ORDERED: POTASSIUM CHLORIDE 20 MEQ TAB.ER.PRT PO ONE (12:30)
[2020-04-08 13:15] VITALS: BP 124/72
[2020-04-08 17:49] VITALS: BP 114/68
[2020-04-08] MEDS ORDERED: WARFARIN 1 MG TABLET PO-COUM ONE (18:00)
[2020-04-08 20:44] VITALS: BP 117/70
[2020-04-09 01:22] VITALS: BP 124/70
[2020-04-09 06:11] LABS: INTERNATIONAL NORMALIZED RATIO 2.99 (0.93-1.1); PROTHROMBIN TIME 31.4 Seconds (9.6-11.5)
[2020-04-09] MEDS: PANTOPRAZOLE 40MG TABLET PO SCH (06:30)
[2020-04-09] MEDS: ACETAMINOPHEN 325 MG TABLET PO PRN ×2 (06:32→13:05)
[2020-04-09] MEDS: CARVEDILOL 3.125 MG TABLET PO SCH ×2 (06:33→17:06)
[2020-04-09 06:34] VITALS: BP 128/80
[2020-04-09 07:40] VITALS: BP 118/71
[2020-04-09] MEDS: MAGNESIUM CHLORIDE 70MG TAB DR PO SCH (10:15)
[2020-04-09] MEDS: ASPIRIN 81 MG TABLET CHEW PO SCH (10:15)
[2020-04-09] MEDS: CEFTAROLINE 600 MG in SODIUM CHLORIDE 0.9% 100 ML IV SCH (10:15)
[2020-04-09 14:42] VITALS: BP 119/67
[2020-04-09] MEDS ORDERED: WARF1TAB74 PO-COUM (15:00)
[2020-04-09] MEDS ORDERED: WARFARIN 1 MG TABLET PO-COUM ONE (18:00)
== END 2020-04-09 23:55 | disposition home or self-care (01) | DRG 710 ==
LOC: ED 02-16 01:39 → EDIP 02-16 01:58 → CCU 02-16 21:43 → 5SO 02-23 21:15 → CCU 02-25 07:48 → 5SO 03-01 16:18
PROVIDERS: ADMIT Internal Medicine; ATTEND Hospitalist
PROC: 30233R1 Transfusion of Nonautologous Platelets into Peripheral Vein, Percutaneous Approach (ICD-10-PCS; 2020-02-16)
PROC: 0T9B70Z Drainage of Bladder with Drainage Device, Via Natural or Artificial Opening (ICD-10-PCS; 2020-02-16)
PROC: 30233N1 Transfusion of Nonautologous Red Blood Cells into Peripheral Vein, Percutaneous Approach (ICD-10-PCS; 2020-02-22)
PROC: 02CN0ZZ Extirpation of Matter from Pericardium, Open Approach (ICD-10-PCS; 2020-02-25)
PROC: 30233K1 Transfusion of Nonautologous Frozen Plasma into Peripheral Vein, Percutaneous Approach (ICD-10-PCS; 2020-02-25)
PROC: 30233M1 Transfusion of Nonautologous Plasma Cryoprecipitate into Peripheral Vein, Percutaneous Approach (ICD-10-PCS; 2020-02-25)
PROC: 5A1221Z Performance of Cardiac Output, Continuous (ICD-10-PCS; 2020-02-25)
PROC: 0W9B30Z Drainage of Left Pleural Cavity with Drainage Device, Percutaneous Approach (ICD-10-PCS; 2020-02-25)
PROC: 0W9930Z Drainage of Right Pleural Cavity with Drainage Device, Percutaneous Approach (ICD-10-PCS; 2020-02-25)
PROC: 0BH17EZ Insertion of Endotracheal Airway into Trachea, Via Natural or Artificial Opening (ICD-10-PCS; 2020-02-25)
PROC: 5A1945Z Respiratory Ventilation, 24-96 Consecutive Hours (ICD-10-PCS; 2020-02-25)
PROC: 02R Heart and Great Vessels, Replacement (ICD-10-PCS; principal; 2020-02-25 07:30)
PROC: 02HV33Z Insertion of Infusion Device into Superior Vena Cava, Percutaneous Approach (ICD-10-PCS; 2020-02-26)
PROC: B548ZZA Ultrasonography of Superior Vena Cava, Guidance (ICD-10-PCS; 2020-02-26)
PROC: 02HV33Z Insertion of Infusion Device into Superior Vena Cava, Percutaneous Approach (ICD-10-PCS; 2020-03-09)
PROC: B5181ZA Fluoroscopy of Superior Vena Cava using Low Osmolar Contrast, Guidance (ICD-10-PCS; 2020-03-09)
PROC: B548ZZA Ultrasonography of Superior Vena Cava, Guidance (ICD-10-PCS; 2020-03-09)
DX: A41.02 Sepsis due to Methicillin resistant Staphylococcus aureus (principal); D61.818 Other pancytopenia; D69.59 Other secondary thrombocytopenia; E43 Unspecified severe protein-calorie malnutrition; Z68.28 Body mass index [BMI] 28.0-28.9, adult; G82.20 Paraplegia, unspecified; I07.1 Rheumatic tricuspid insufficiency; E83.42 Hypomagnesemia; E86.0 Dehydration; E87.0 Hyperosmolality and hypernatremia; E16.2 Hypoglycemia, unspecified; F15.10 Other stimulant abuse, uncomplicated; F11.20 Opioid dependence, uncomplicated; E83.51 Hypocalcemia; I26.90 Septic pulmonary embolism without acute cor pulmonale; I27.20 Pulmonary hypertension, unspecified; I33.0 Acute and subacute infective endocarditis; I42.9 Cardiomyopathy, unspecified; I49.8 Other specified cardiac arrhythmias; I76 Septic arterial embolism; J15.212 Pneumonia due to Methicillin resistant Staphylococcus aureus; J15.6 Pneumonia due to other Gram-negative bacteria; J85.0 Gangrene and necrosis of lung; J90 Pleural effusion, not elsewhere classified; J93.9 Pneumothorax, unspecified; J96.01 Acute respiratory failure with hypoxia; K72.00 Acute and subacute hepatic failure without coma; N17.0 Acute kidney failure with tubular necrosis; N18.9 Chronic kidney disease, unspecified; R65.21 Severe sepsis with septic shock; T50.905A Adverse effect of unspecified drugs, medicaments and biological substances, initial encounter; T82.7XXA Infection and inflammatory reaction due to other cardiac and vascular devices, implants and grafts, initial encounter; Y83.1 Surgical operation with implant of artificial internal device as the cause of abnormal reaction of the patient, or of later complication, without mention of misadventure at the time of the procedure; Y95 Nosocomial condition; Z20.828 Contact with and (suspected) exposure to other viral communicable diseases; Z86.14 Personal history of Methicillin resistant Staphylococcus aureus infection; Z86.61 Personal history of infections of the central nervous system; Z95.810 Presence of automatic (implantable) cardiac defibrillator; E87.6 Hypokalemia; F17.210 Nicotine dependence, cigarettes, uncomplicated; G06.1 Intraspinal abscess and granuloma; G40.909 Epilepsy, unspecified, not intractable, without status epilepticus; G89.29 Other chronic pain; Z20.822 Contact with and (suspected) exposure to COVID-19; B15.9 Hepatitis A without hepatic coma; E87.5 Hyperkalemia; R91.1 Solitary pulmonary nodule
CPT/HCPCS: J3490; S0017; 36415; 36573; 36600; 71045; 71046; 71250; 71260; 71275; 72128; 72131; 72157; 72158; 76700; 76937; 77001; 80048; 80053; 80074; 80076; 80202; 80307; 81001; 82040; 82247; 82248; 82330; 82436; 82533; 82550; 82565; 82800; 82803; 82810; 82947; 82962; 83036; 83605; 83615; 83735; 84100; 84132; 84133; 84295; 84300; 84443; 84478; 84484; 85014; 85018; 85025; 85049; 85347; 85379; 85384; 85610; 85651; 85730; 86022; 86078; 86140; 86850; 86900; 86923; 87040; 87070; 87075; 87077; 87081; 87086; 87147; 87176; 87186; 87205; 87806; 88300; 88305; 90935; 93005; 93306; 93312; 93321; 93325; 93880; 93970; 94003; 94150; 96365; 99291; C1894; G0378; J0171; J0610; J0712; J0878; J1335; J1644; J1815; J1940; J2020; J2250; J2260; J2270; J2405; J2543; J2550; J2720; J2997; J3010; J3370; J3475; J3480; J7030; J7070; J7189; P9045; P9047; Q9967; Q9968; C1751; C1760; C9113; G0475; J1580; J1642; J2150; J2370; J7040; J7050; J7120; P9012; P9016; P9017; P9035; U0003